=== PATIENT | female | born 1985 | race Caucasian/White ===

== ENCOUNTER 2016-05-08 09:56 | Inpatient (IN) | payer OTHER ==
[~2016-05-08 09:56] MED LIST: HYDROmorphONE/DILAUDID 1 MG/ML SYR IVP ONE
[2016-05-08] MEDS ORDERED: HYDROmorphONE/DILAUDID 1 MG/ML SYR ONE ×3 (10:06→13:18)
[2016-05-08] MEDS ORDERED: NS 1,000 ML IV ONE (10:27)
[2016-05-08] MEDS ORDERED: ONDANSETRON 4 MG/2 ML VIAL IVP ONE ×2 (10:27→13:21)
[2016-05-08] MEDS ORDERED: HYDROmorphONE/DILAUDID 1 MG/ML SYR IVP ONE (10:27)
[2016-05-08] MEDS ORDERED: FAMOTIDINE 20 MG/NACL 50 ML IV ONE (10:27)
--- NOTE | 2016-05-08 10:32 | EDPHY ---
H & P Time Seen by Provider: 05/08/16 10:04 HPI/ROS: HPI Abdominal pain. 30-year-old female by private vehicle with her friend. This patient reports relatively sudden onset mid abdominal pain starting at 8:30 a.m.. She describes this pain is very intense and crampy in nature. She reports that it spreads throughout her entire abdomen. She reports having a similar episode to this 1 month ago in [place]. She had an extensive workup at this time. She had an unremarkable CT scan of her abdomen and pelvis. This resolved pain spontaneously. She has been seen Dr. Cisneros of the [facility] since this episode. She has not had endoscopy yet. There is concern regarding her iron levels. No history of abdominal surgeries. Last bowel movement was this morning. This was described as soft normal. No bloody or melenic stool. She has had nausea but no vomiting. No urinary complaints. Last meal was yesterday evening. ROS: Constitutional: No fever, no chills. No weakness. Eyes: No discharge. No changes in vision. ENT: No sore throat. No nasal congestion or rhinorrhea. Respiratory: No cough. No shortness of breath. Cardiac: No chest pain, no palpitations. Gastrointestinal: As above. Genitourinary: No hematuria. No dysuria or increased frequency with urination. No vaginally bleeding or vegetable discharge. Musculoskeletal: No back pain. No neck pain. No myalgias or arthralgias. Skin: No rashes. Neurological: No headache. No focal weakness or altered sensation. Past medical history: As above. Social history: She is here with her friend. Physical Exam: General Appearance: Alert, she appears uncomfortable. This patient is responding to questions appropriately and in full sentences. This patient appears well-hydrated and well-nourished. Eyes: Pupils equal and round no pallor or injection. No lid edema, erythema or injection. Respiratory: There are no retractions, lungs are clear to auscultation with good air movement bilaterally. Cardiovascular: Regular rate and rhythm. No murmur. Gastrointestinal: Abdomen is soft with tenderness on palpation throughout, no masses, bowel sounds normal. No focal tenderness at McBurney's point. No Coles sign. Neurological: Motor sensory function is grossly intact. Cranial nerves are normal. Gait is normal. Skin: Warm and dry, no rashes. Musculoskeletal: Neck is supple and nontender. Extremities are symmetrical. All joints range without pain or impingement. Psychiatric: No agitation. No depression. Database: EKG: Imaging: CT scan of abdomen and pelvis with IV contrast: Significant for a small bowel obstruction in the upper mid pelvis, questionable internal hernia. Results were discussed with staff radiologist Dr. Ciro Mayer. Procedures: Emergency department course: IV placed. She was placed on a monitor. She was started on IV normal saline with 1 L to be given over the next hour. She was initially given 0.5 mg of IV hydromorphone, 20 mg of IV Pepcid and 4 mg of IV Zofran. IV hydromorphone will be repeated as needed for pain control. She will be sent for CT imaging of the abdomen and pelvis. She endorses this plan. 11:00 a.m., patient has required additional doses of IV hydromorphone for pain control. She has had 1.5 mg total. Waiting on creatinine if normal will give 30 mg IV Toradol. 11:20 a.m., 30 mg IV Toradol given. Patient going to CT imaging shortly. 12:00 p.m., patient re-evaluated. She is asking for more pain medication. She was given an additional 0.5 mg of IV hydromorphone. She is a [facility] patient. [facility] general surgeon has been paged. 12:10 p.m., spoke with general surgeon, Dr. Daniel Ortiz. Case discussed in detail with him. He will see this patient in the emergency department shortly. Initial plan is operative management shortly. Plan discussed with patient. All of her questions were answered. 1 PM, patient taking to OR under the care of Dr. Daniel Ortiz. Differential Diagnosis: The differential diagnosis on this patient includes but is not limited to bowel obstruction/volvulus, appendicitis, pancreatitis, cholecystitis, colitis, ileitis. This represents a partial list of diagnoses considered. These considerations are based on history, physical exam, past history, reassessment and diagnostic testing. Smoking Status: Never smoked Constitutional: Initial Vital Signs Temperature (C) 36.5 C 05/08/16 10:00 Heart Rate 54 L 05/08/16 10:00 Respiratory Rate 24 H 05/08/16 10:00 Blood Pressure 157/93 H 05/08/16 10:00 O2 Sat (%) 100 05/08/16 10:00 Allergies/Adverse Reactions: cefaclor [From [facility]] Allergy (Verified 05/08/16 10:00) Home Medications: Medication Instructions Recorded Norgestimate-Ethinyl Estradiol 1 each PO HS 05/08/16 [Trinessa Tablet] Medical Decision Making - Data Points Laboratory Results: Laboratory Results 05/08/16 10:45 05/08/16 10:45 Medications Given: Discontinued Medications Hydromorphone HCl (Dilaudid) 0.5 mg IVP EDNOW ONE Stop: 05/08/16 08:01 Last Admin: 05/08/16 10:12 Dose: 0.5 mg Hydromorphone HCl (Dilaudid) 1 mg IVP EDNOW ONE Stop: 05/08/16 08:01 Last Admin: 05/08/16 10:27 Dose: 1 mg Hydromorphone HCl (Dilaudid) 0.5 mg IVP EDNOW ONE Stop: 05/08/16 10:28 Last Admin: 05/08/16 12:14 Dose: 0.5 mg Hydromorphone HCl (Dilaudid) 1 mg IVP EDNOW ONE Stop: 05/08/16 08:01 Last Admin: 05/08/16 13:27 Dose: 1 mg Sodium Chloride (Ns) 1,000 mls @ 0 mls/hr IV ONCE ONE PRN Reason: Wide Open Stop: 05/08/16 10:28 Last Admin: 05/08/16 10:27 Dose: 1,000 mls Famotidine/Sodium Chloride (Pepcid 20 Mg (Premix)) 50 mls @ 200 mls/hr IV EDNOW ONE Stop: 05/08/16 10:41 Last Admin: 05/08/16 10:45 Dose: 50 mls Ertapenem 1 gm/ Sodium (Chloride) 100 mls @ 200 mls/hr IV DAILY JARRETT PRN Reason: Protocol Stop: 06/08/16 17:29 Last Admin: 05/09/16 17:30 Dose: 100 mls Ketorolac Tromethamine (Toradol) 30 mg IVP EDNOW ONE Stop: 05/08/16 11:11 Last Admin: 05/08/16 11:44 Dose: 30 mg Ondansetron HCl (Zofran) 4 mg IVP EDNOW ONE Stop: 05/08/16 10:28 Last Admin: 05/08/16 12:14 Dose: 4 mg Ondansetron HCl (Zofran) 4 mg IVP EDNOW ONE Stop: 05/08/16 13:22 Last Admin: 05/08/16 13:27 Dose: 4 mg Ondansetron HCl (Zofran Odt) 4 mg PO Q6 PRN PRN Reason: Nausea/Vomiting, Use 1st Stop: 11/06/16 17:06 Last Admin: 05/10/16 17:29 Dose: 4 mg Oxycodone/Acetaminophen (Percocet 5/325) 1 - 2 tab PO Q6 PRN PRN Reason: Pain, Severe Able to Take PO Stop: 05/19/16 08:49 Last Admin: 05/09/16 13:03 Dose: 2 tab Departure - Departure Disposition: To OP Cath/Surgery Clinical Impression: Abdominal pain, Small bowel obstruction Condition: Good
[2016-05-08 10:55] LABS: % IMMATURE GRANULYOCYTES 0.4 % (0.0-1.1); ABSOLUTE IMMATURE GRANULOCYTES 0.04 10^3/uL (0.00-0.10); ADD DIFF? NO; ADD MORPH? NO; ADD SCAN? NO; ATYPICAL LYMPHOCYTE FLAG 10 (0-99); FRAGMENT RBC FLAG 20 (0-99); HEMATOCRIT 41.6 % (38.0-47.0); HEMOGLOBIN 13.4 g/dL (12.6-16.3); LEFT SHIFT FLG 0 (0-99); LIPEMIA HEMOLYSIS FLAG 80 (0-99); MEAN CELL HEMOGLOBIN 26.4 pg (27.9-34.1); MEAN CELL HEMOGLOBIN CONCENTR. 32.2 g/dL (32.4-36.7); MEAN CELL VOLUME 81.9 fL (81.5-99.8); MEAN PLATELET VOLUME 10.8 fL (8.7-11.7); PLATELET CLUMPS FLAG 0 (0-99); PLATELET COUNT 260 10^3/uL (150-400); RED BLOOD CELL COUNT 5.08 10^6/uL (4.18-5.33); RED CELL DISTRIBUTION WIDTH 16.8 % (11.5-15.2)
[2016-05-08 11:07] LABS: ALANINE AMINOTRANSFERASE 15 IU/L (9-52); ALBUMIN 4.3 g/dL (3.5-5.0); ALKALINE PHOSPHATASE 73 IU/L (38-126); ANION GAP 14 mEq/L (8-16); ASPARTATE AMINOTRANSFERASE 37 IU/L (14-46); BILIRUBIN,TOTAL 0.9 mg/dL (0.1-1.4); BILIRUBIN-CONJUGATED 0.6 mg/dL (0.0-0.5); BILIRUBIN-UNCONJUGATED 0.3 mg/dL (0.0-1.1); CARBON DIOXIDE 21 mEq/l (22-31); CHLORIDE 105 mEq/L (97-110); CREATININE 0.7 mg/dL (0.6-1.0); GLOMERULAR FILTRATION RATE > 60; GLUCOSE 170 mg/dL (70-100); SODIUM 140 mEq/L (134-144); SPECIMEN HEMOLYSIS 135; TOTAL PROTEIN 7.5 g/dL (6.3-8.2)
[2016-05-08] MEDS ORDERED: KETOROLAC 30 MG/1 ML SDV IVP ONE (11:10)
[2016-05-08] MEDS ORDERED: IOPAMIDOL (ISOVUE-300) 50 ML VIAL IV ONE (11:11)
--- NOTE | 2016-05-08 12:10 | CT ---
CT Scan of the Abdomen and Pelvis (With Contrast) 1125 hours History: Abdominal pain. Bloating. Nausea and vomiting. Technique: Axial computed tomographic images of the abdomen and pelvis were obtained with the unevent ful intravenous administration of 90 mL Isovue-300 contrast. No oral or rectal contrast which limits the study. Dose reduction techniques were utilized. CT Abdomen Findings: Lung bases: Normal. Liver: Normal. Biliary system: No obstruction. Spleen: Normal. Pancreas: Normal. Adrenals: Normal. Kidneys: No obstruction or solid masses. Abdominal Aorta: No aneurysm. Multiple dilated loops of small bowel with air-fluid levels, wall edema, and mesenteric edema which o n the coronal images is swirling to a central point located just upper midpelvis posteriorly, consist ent with a closed loop small bowel obstruction with possible internal hernia extending into the upper right mid pelvis on image [address] Pelvis Findings: Small amount of free fluid in the pelvis. No adnexal masses. Impression: 1. High-grade closed-loop small bowel obstruction in the midpelvis with small bowel air-fluid levels, edema, free fluid, and a possible internal hernia. 2. No colonic obstruction or volvulus. Findings and recommendations discussed with Emergency Department physician, Dr. Mora at 1145 h ours today. Final report concurs with initial preliminary interpretation.
[2016-05-08 13:14] LABS: FERRITIN - BCH 19.1 ng/mL (6.2-264.0)
[2016-05-08] MEDS ORDERED: ONDANSETRON 4 MG/2 ML VIAL ONE ×2 (13:21→14:41)
[2016-05-08] MEDS ORDERED: BUPIVACAINE 0.5% 30 ML SDV ONE (14:00)
[2016-05-08] MEDS ORDERED: PROPOFOL 200 MG/20 ML VIAL ONE ×2 (14:00)
[2016-05-08] MEDS ORDERED: fentaNYL 100 MCG/2 ML INJ ONE ×2 (14:00→14:36)
[2016-05-08] MEDS ORDERED: ROCURONIUM 50 MG/5 ML VIAL ONE (14:04)
[2016-05-08] MEDS ORDERED: LIDOCAINE 2% 100 MG/5 ML SYR IVP ONE ×2 (14:04→14:05)
[2016-05-08] MEDS ORDERED: SUCCINYLCHOLINE CHLORIDE*ANESTHESIA ONLY*200 MG/10 ML SYR IVP ONE (14:05)
[2016-05-08] MEDS ORDERED: MIDAZOLAM 2 MG/2 ML VIAL ONE (14:10)
[2016-05-08] MEDS ORDERED: DEXAMETHASONE 4 MG/ML VIAL ONE ×2 (14:40→14:41)
[2016-05-08] MEDS ORDERED: HYDROmorphONE/DILAUDID 2 MG/ML SYR ONE (14:40)
[2016-05-08] MEDS ORDERED: KETOROLAC 30 MG/1 ML SDV ONE (15:11)
[2016-05-08] MEDS ORDERED: SUGAMMADEX SODIUM 200 MG/2 ML VIAL IVP ONE (15:21)
--- NOTE | 2016-05-08 15:43 | POSTOPPROG ---
Post Op Note Date of Operation: 05/08/16 Surgeon: Arian Ortiz Anesthesiologist: Edwige Anesthesia: GET(General Endotracheal) Pre-op Diagnosis: PSBO Post-op Diagnosis: internal hernia Procedure: Diagnostic laparoscopy, Ophelia, repair internal hernia Inf/Abcess present in the surg proc area at time of surgery?: No EBL: 50-100
[2016-05-08] MEDS: LR 1,000 ML IV SCH (17:29)
--- NOTE | 2016-05-08 19:45 | GOP ---
[f rep st] OPERATIVE REPORT DATE OF OPERATION: 05/08/2016 SURGEON: Venkatesh Ortiz MD ANESTHESIA: General endotracheal. ANESTHESIOLOGIST: Dr. iGbbons PREOPERATIVE DIAGNOSIS: Partial small-bowel obstruction. POSTOPERATIVE DIAGNOSIS: 1. Closed loop bowel obstruction. 2. Internal hernia. PROCEDURE PERFORMED: 1. Diagnostic laparoscopy. 2. Lysis of adhesions. 3. Repair of internal hernia. FINDINGS: Patient had a defect in the transverse colonic mesentery allowing small intestine to herni ate and cause a closed loop obstruction. Bowel was viable. No other lesions were noted. ESTIMATED BLOOD LOSS: 20 cc. INDICATIONS: A 30-year-old female with a history of abdominal pain. CT scan demonstrated possible o bstruction. Risks and benefits of the procedure were discussed the patient, all questions were answe red, and she wished to proceed. DESCRIPTION OF PROCEDURE: Patient was placed in the supine position. After the induction of adequat e general endotracheal anesthesia, the patient was prepped and draped in the standard surgical fashio n. 0.5% Marcaine was injected throughout the infraumbilical area and a 5 mm incision was made. The abdo nitesh wall was elevated and a Veress needle was inserted. After noting proper pressures, the abdomen was insufflated with carbon dioxide. A 5 mm trocar was passed and the camera followed. There was n o apparent damage from trocar placement. Upon entry with the camera, there was a significant small bowel anterior to the transverse colon mese ntery. Two more ports were placed, both 5 mm ports, placed in the lower abdomen. This was done afte r injecting 0.5% Marcaine for local anesthesia. The omentum and transverse colon were elevated. This exposed the defect in the transverse mesentery. A significant portion of mid small bowel was herniated through this. This was gently retracted in a fyfd-bwak-kepu fashion using atraumatic graspers. A segment of approximately 20 cm was mildly hemo rrhagic, but otherwise unharmed. There was a band adhesion pinning the intestine in this configurati on. This was lysed using sharp dissection. The bowel was returned to its standard anatomical positi on. The blood flow improved nicely. The defect was then evaluated and was approximately 2.5. This was closed with a 5 mm clip nursing care attendant. Once adequate closure was obtained, the area was thoroughly inspected. No other lesions were identif ied. No significant hernias or masses were noted. The bowel was continuing to improve in its color and was all peristalsing without difficulty. The area was then thoroughly aspirated and no evidence of perforation seen. Therefore, the pneumoper itoneum was allowed to escape and the ports were withdrawn under direct vision. The wounds were thor oughly irrigated and the skin at all sites was closed with 4-0 Monocryl in a subcuticular stitch. Wo unds were sterilely dressed, and the patient was extubated and taken to the PACU in stable condition. COMPLICATIONS: None. DRAINS: None. /[id number]/MODL
[2016-05-08] MEDS: KETOROLAC 15 MG/1 ML SDV IVP SCH (21:58)
[2016-05-08 23:20] LABS: COLOR YELLOW; LEUKOCYTE ESTERASE,URINE NEGATIVE (NEGATIVE); NITRITE,URINE NEGATIVE (NEGATIVE)
[2016-05-08 23:24] LABS: MUCUS TRACE /lpf (NONE-1+); RBC,URINE 50-182 /hpf (0-3)
[2016-05-09] MEDS: ONDANSETRON 4 MG/2 ML VIAL IVP PRN ×4 (01:07→20:38)
[2016-05-09] MEDS: HYDROmorphONE/DILAUDID 1 MG/ML SYR IVP PRN ×5 (01:08→20:50)
[2016-05-09] MEDS: LR 1,000 ML IV SCH ×2 (02:45→15:46)
[2016-05-09] MEDS: KETOROLAC 15 MG/1 ML SDV IVP SCH ×3 (05:56→22:05)
[2016-05-09] MEDS: OXYCODONE/APAP 5/325 TAB PO PRN ×3 (08:56→21:02)
--- NOTE | 2016-05-09 17:14 | SOAPPROG ---
SOAP Progress Note Assessment/Plan: Assessment: Appeared improved on exam this AM; now with low-grade temp and tachycardia. Options d/w patient and family including abx, imaging, repeat laparoscopy. Risks/benefits of each explained along with signs and symptoms of concern. Questions answered. Will start abx for potential translocation, but if no improvement plan further intervention. Plan: 05/09/16 17:11 Subjective: Patient felt better this AM, still with upper abd and right shoulder pain. Worse now but not similar to presenting pain. No N/V. Urinating without difficulty. No BM. Objective: Vital Signs Temp Pulse Resp BP Pulse Ox 38.0 C 125 H 16 118/65 93 05/09/16 15:44 05/09/16 15:44 05/09/16 15:30 05/09/16 15:30 05/09/16 15:30 05/08/16 05/09/16 05/10/16 05:59 05:59 05:59 Intake Total 3307 Output Total 655 Balance 2652 Alert, NAD Tach but reg to 110. Abd slightly distended, some inc TTP but no rebound/guarding Inc C/D/I ICD10 Worksheet Patient Problems: Problems Problem Status Diagnosed Abdominal pain Acute Small bowel obstruction Acute
[2016-05-09] MEDS ORDERED: ERTAPENEM 1 GM in NS 100 ML IV SCH (17:30)
[2016-05-09 17:31] LABS: ADD MORPH? NO; ADD SCAN? YES; ATYPICAL LYMPHOCYTE FLAG 30 (0-99); FRAGMENT RBC FLAG 0 (0-99); HEMATOCRIT 36.3 % (38.0-47.0); HEMOGLOBIN 11.6 g/dL (12.6-16.3); LIPEMIA HEMOLYSIS FLAG 80 (0-99); MEAN CELL HEMOGLOBIN 26.4 pg (27.9-34.1); MEAN CELL VOLUME 82.7 fL (81.5-99.8); MEAN PLATELET VOLUME 10.4 fL (8.7-11.7); PLATELET CLUMPS FLAG 0 (0-99); PLATELET COUNT 162 10^3/uL (150-400); RED BLOOD CELL COUNT 4.39 10^6/uL (4.18-5.33); RED CELL DISTRIBUTION WIDTH 17.1 % (11.5-15.2)
[2016-05-09 17:34] LABS: LEFT SHIFT FLG 300 (0-99)
[2016-05-09 17:55] LABS: ALANINE AMINOTRANSFERASE 27 IU/L (9-52); ALBUMIN 2.8 g/dL (3.5-5.0); ALKALINE PHOSPHATASE 49 IU/L (38-126); ANION GAP 10 mEq/L (8-16); ASPARTATE AMINOTRANSFERASE 21 IU/L (14-46); BILIRUBIN,TOTAL 0.9 mg/dL (0.1-1.4); CALCIUM 7.9 mg/dL (8.5-10.4); CARBON DIOXIDE 26 mEq/l (22-31); CHLORIDE 101 mEq/L (97-110); CREATININE 0.8 mg/dL (0.6-1.0); GLOMERULAR FILTRATION RATE > 60; GLUCOSE 101 mg/dL (70-100); POTASSIUM 3.8 mEq/L (3.5-5.2); SODIUM 137 mEq/L (134-144); TOTAL PROTEIN 5.8 g/dL (6.3-8.2)
[2016-05-09 18:17] LABS: ADD DIFF? YES; SCAN POSITIVE
[2016-05-09 18:33] LABS: GIANT PLATELETS PRESENT
[2016-05-09 18:34] LABS: HYPOCHROMIA 1+; MICROCYTES 1+; PLATELET ESTIMATE ADEQUATE (ADEQ)
[2016-05-10] MEDS: OXYCODONE/APAP 5/325 TAB PO PRN ×6 (01:44→22:52)
[2016-05-10] MEDS: LR 1,000 ML IV SCH ×3 (01:59→23:52)
[2016-05-10] MEDS: KETOROLAC 15 MG/1 ML SDV IVP SCH ×3 (05:30→21:59)
--- NOTE | 2016-05-10 08:55 | SOAPPROG ---
SOAP Progress Note Assessment/Plan: Assessment: Improving. Cont slow advancement of diet, ambulate, IS. Reviewed signs/ symptoms of concern, questions answered. Plan: 05/09/16 17:11 05/10/16 08:54 Subjective: Patient feels better, pain improved, no temps overnight. No flatus/BM Objective: Vital Signs Temp Pulse Resp BP Pulse Ox 36.8 C 94 18 92/61 L 95 05/10/16 08:00 05/10/16 08:00 05/10/16 08:00 05/10/16 08:00 05/10/16 08:00 Laboratory Results 05/09/16 17:26 05/09/16 17:26 05/09/16 05/10/16 05/11/16 05:59 05:59 05:59 Intake Total 3307 2418 400 Output Total 655 2130 Balance 2652 288 400 Alert, NAD RRR Abd soft, inc TTP Inc C/D/I ICD10 Worksheet Patient Problems: Problems Problem Status Diagnosed Abdominal pain Acute Small bowel obstruction Acute
[2016-05-10] MEDS: ONDANSETRON 4 MG/2 ML VIAL IVP PRN ×2 (09:39→13:27)
[2016-05-10] MEDS ORDERED: ONDANSETRON DISINTEGRATING 4 MG TAB PO PRN (17:07)
[2016-05-10] MEDS: ONDANSETRON DISINTEGRATING 4 MG TAB PO PRN (22:26)
[2016-05-11] MEDS: ONDANSETRON DISINTEGRATING 4 MG TAB PO PRN ×4 (03:48→16:38)
[2016-05-11] MEDS: OXYCODONE/APAP 5/325 TAB PO PRN ×4 (04:01→17:02)
[2016-05-11] MEDS: KETOROLAC 15 MG/1 ML SDV IVP SCH ×2 (06:07→15:05)
--- NOTE | 2016-05-11 08:43 | SOAPPROG ---
SOAP Progress Note Assessment/Plan: Assessment: Stable to improving ileus. Cont slow po, ambulate, pain control, IS. D/w patient and family, questions answered. Plan: 05/09/16 17:11 05/10/16 08:54 05/11/16 08:41 Subjective: Patient overall feels better, new discomfort LLQ. [place] po, no N/V. No BM. Objective: Vital Signs Temp Pulse Resp BP Pulse Ox 36.4 C 107 H 12 109/74 97 05/11/16 08:00 05/11/16 08:00 05/11/16 08:00 05/11/16 08:00 05/11/16 08:00 Laboratory Results 05/09/16 17:26 05/09/16 17:26 05/10/16 05/11/16 05/12/16 05:59 05:59 05:59 Intake Total 2418 2250 Output Total 2130 1245 Balance 288 1005 Alert, NAD RRR Abd distended, inc TTP. No rebound/guarding Inc C/D/I ICD10 Worksheet Patient Problems: Problems Problem Status Diagnosed Abdominal pain Acute Small bowel obstruction Acute
[2016-05-11] MEDS ORDERED: K PHOS 10 MMOL in D5W 250 ML IV ONE (12:00)
--- NOTE | 2016-05-11 15:52 | CPEKG ---
Heart Rate: 140 RR Interval: 429 P-R Interval: 128 QRSD Interval: 74 QT Interval: 264 QTC Interval: 403 P Corinth: 51 QRS Corinth: 31 T Wave Corinth: -55 EKG Severity - BORDERLINE ECG - EKG Impression: SINUS TACHYCARDIA EKG Impression: BORDERLINE T ABNORMALITIES, DIFFUSE LEADS Electronically Signed By: Pedro Harrison 11-May-2016 17:05:56
[2016-05-11 16:23] LABS: HEMATOCRIT 37.6 % (38.0-47.0); MEAN CELL HEMOGLOBIN 26.5 pg (27.9-34.1); MEAN CELL HEMOGLOBIN CONCENTR. 31.9 g/dL (32.4-36.7); RED BLOOD CELL COUNT 4.53 10^6/uL (4.18-5.33); RED CELL DISTRIBUTION WIDTH 17.3 % (11.5-15.2)
[2016-05-11 16:36] LABS: ANION GAP 11 mEq/L (8-16); CALCIUM 8.3 mg/dL (8.5-10.4); CARBON DIOXIDE 26 mEq/l (22-31); CHLORIDE 95 mEq/L (97-110); CREATININE 0.7 mg/dL (0.6-1.0); GLOMERULAR FILTRATION RATE > 60; GLUCOSE 111 mg/dL (70-100); MAGNESIUM 1.7 mg/dL (1.6-2.3); POTASSIUM 3.7 mEq/L (3.5-5.2); SODIUM 132 mEq/L (134-144)
[2016-05-11] MEDS ORDERED: PROTOCOL MAGNESIUM 1 DOSE IV PRN (16:40)
[2016-05-11] MEDS ORDERED: PROTOCOL K PHOSPHATE 1 DOSE IV PRN (16:40)
[2016-05-11] MEDS ORDERED: MAGNESIUM SULF 1 GM/DEXTROSE 100 ML IV ONE (17:36)
[2016-05-11] MEDS: HYDROmorphONE/DILAUDID 1 MG/ML SYR IVP PRN (18:25)
[2016-05-11] MEDS ORDERED: IOPAMIDOL (ISOVUE-300) 50 ML VIAL IV ONE (18:42)
--- NOTE | 2016-05-11 19:31 | CT ---
CT Scan of the Abdomen and Pelvis (With Contrast) 1908 hours History: Abdominal pain and distention status post internal hernia and small bowel obstruction surge ry. Comparison: CT May 08, 2016. Technique: Axial computed tomographic images of the abdomen and pelvis were obtained with the uneven tful intravenous administration of 85 mL Isovue-300 contrast. No oral or rectal contrast which limits the study. Dose reduction techniques were utilized. CT Abdomen Findings: Lung bases: Minimal bilateral pleural effusions. Liver: Normal. Biliary system: No obstruction. Spleen: Normal. Pancreas: Normal. Adrenals: Normal. Kidneys: No obstruction or solid masses. Abdominal Aorta: No aneurysm. Moderate pneumoperitoneum in the abdomen especially epigastric and right upper quadrant. Moderate asc ites throughout the abdomen with diffuse edema. Multiple dilated loops of small bowel with air-fluid levels, but no definite transition point. Colon appears decompressed. Sutures in the right upper quad rant of the abdomen. CT Pelvic Findings: Complex fluid collections anterior and posterior to the uterus. The posterior fl uid collection appears complex with gas bubbles and mixed density measuring 11.4 x 7 x 7 cm. The ante rior fluid collection anterior to the uterus and superior to the bladder also appears complex with ai r-fluid level measuring 11.4 x 4.8 x 9.2 cm. Diffuse fluid also noted in the mid mesentery. Impression: 1. Complex fluid and pneumoperitoneum with 2 more focal larger fluid collections posterior cul-de-sac measuring 11.4 x 7 x 7 cm and anterior upper pelvis measuring 11.4 x 4.8 x 9.2 cm suggesting possibl e bowel perforation and early abscess. 2. Additional fluid throughout the upper abdomen with extensive pneumoperitoneum. 3. Minimal bilateral pleural effusions. 4. Multiple dilated loops of small bowel without definite transition point. Bowel perforation cannot be excluded. Findings and recommendations discussed with Dr. Ortiz at 1915 hours, May 11, 2016.
[2016-05-11] MEDS ORDERED: BUPIVACAINE 0.5% 30 ML SDV ONE (19:53)
[2016-05-11] MEDS ORDERED: fentaNYL 250 MCG/5 ML INJ ONE (20:09)
[2016-05-11] MEDS ORDERED: ROCURONIUM 50 MG/5 ML VIAL ONE (20:09)
[2016-05-11] MEDS ORDERED: LIDOCAINE 2% 5 ML SDV ONE (20:10)
[2016-05-11] MEDS ORDERED: PROPOFOL 200 MG/20 ML VIAL ONE (20:10)
[2016-05-11] MEDS ORDERED: DEXAMETHASONE 4 MG/ML VIAL ONE (20:11)
[2016-05-11] MEDS ORDERED: SUCCINYLCHOLINE CHLORIDE*ANESTHESIA ONLY*200 MG/10 ML SYR IVP ONE (20:12)
[2016-05-11] MEDS ORDERED: BUPIVACAINE 0.25% 30 ML SDV ONE ×2 (20:27→22:03)
[2016-05-11] MEDS ORDERED: MIDAZOLAM 2 MG/2 ML VIAL ONE (20:43)
[2016-05-11] MEDS ORDERED: ONDANSETRON 4 MG/2 ML VIAL ONE ×3 (21:46→22:52)
[2016-05-11] MEDS ORDERED: NEOSTIGMINE METHYLSULFATE 5 MG/5 ML SYR ONE (22:03)
[2016-05-11] MEDS ORDERED: GLYCOPYRROLATE 0.2 MG/1 ML VIAL ONE (22:04)
[2016-05-11] MEDS ORDERED: NALOXONE HCL 0.4 MG/ML INJ IVP PRN (22:33)
[2016-05-11] MEDS ORDERED: D10W 1,000 ML IV PRN (22:34)
--- NOTE | 2016-05-11 22:44 | POSTOPPROG ---
Post Op Note Date of Operation: 05/11/16 Surgeon: Arian Ortiz Anesthesiologist: Jaswant Anesthesia: GET(General Endotracheal) Pre-op Diagnosis: Bowel perforation Post-op Diagnosis: same Procedure: Exploratory laparotomy, small bowel resection Inf/Abcess present in the surg proc area at time of surgery?: Yes Depth: Organ Space EBL: 50-100 Drains: Chance Vallecillo ([id number])
[2016-05-11] MEDS ORDERED: fentaNYL 100 MCG/2 ML INJ ONE (22:47)
[2016-05-11] MEDS ORDERED: HYDROmorphONE/DILAUDID 1 MG/ML SYR ONE (23:31)
[2016-05-12] MEDS: HYDROmorphONE/DILAUDID 6 MG/30 ML PCA IV PRN (00:26)
[2016-05-12] MEDS: NS 1,000 ML IV SCH ×3 (01:17→20:33)
[2016-05-12] MEDS: ERTAPENEM 1 GM in NS 100 ML IV SCH ×2 (01:44→20:33)
--- NOTE | 2016-05-12 02:27 | GOP ---
[f rep st] OPERATIVE REPORT DATE OF OPERATION: 05/11/2016 SURGEON: Venkatesh Ortiz MD ANESTHESIA: General endotracheal anesthesia PREOPERATIVE DIAGNOSIS: Bowel perforation. POSTOPERATIVE DIAGNOSIS: Bowel perforation. PROCEDURE PERFORMED: 1. Exploratory laparotomy. 2. Small bowel resection. FINDINGS: The patient had multiple perforations along the section of small bowel that had been reduced from the prior surgery. No other lesions were identified. ESTIMATED BLOOD LOSS: 50 cc. INDICATIONS: A 30-year-old female, who is status post laparoscopic reduction of an internal hernia. The patient developed tachycardia and abdominal pain postoperatively. CT scan demonstrated a large amount of fluid and free air consistent with perforation. Risks and benefits of the procedure were discussed with the patient and her family, their questions were answered. They wished to proceed. DESCRIPTION OF PROCEDURE: Patient was in the supine position. After the induction of adequate general endotracheal anesthesia, the patient was prepped and draped in standard surgical fashion. 0.25% Marcaine was injected throughout the infraumbilical area for local anesthesia. A lower midline incision was made with a #10 blade and carried down into subcutaneous tissue. Bovie cautery and blunt dissection. The fascia was divided in the midline. The peritoneum was elevated. The abdomen was then entered bluntly, and the abdomen was inspected. There was a significant amount of succus in the pelvis. This was thoroughly suctioned with a pool sucker. Next, the abdomen was thoroughly irrigated and aspirated until the effluent returned clear. At this point, the intestine was assessed. There was an approximately 20 cm section of small bowel that appeared to be hemorrhagic. There were 3-5 small punctate perforations near the mesenteric border in different areas along this length. There was some thrombosis noted in the mesentery adjacent to this bowel. The remainder of the small bowel was run and no other lesions were identified. Decision was made to resect this section. Windows were opened in the mesentery using blunt dissection. The JONATHAN stapler with blue load was passed across each section and fired. The mesentery was then dissected with the Harmonic scalpel. The area was inspected and good hemostasis was noted. The bowel was then approximated using 3-0 Vicryl in an interrupted fashion. This potential anastomosis was set in the abdomen and the remainder of the abdomen was thoroughly irrigated and aspirated with warm saline. Once the effluent returned clear, the site of the anastomosis was reinspected. It appeared to have good blood supply, with no evidence of hemorrhagic areas of a thrombosis. Therefore, enterotomies were made with Bovie cautery. JONATHAN stapler with blue load was passed across this area and fired. The staple lines were inspected. Good hemostasis was noted. The mucosa was pink. The remaining defect was closed with 3-0 Vicryl in a running fashion. This was then oversewn with 3-0 Vicryl Lemberts. The area was again inspected and no tension or twisting was noted. The mesenteric defect was closed with 3-0 Vicryl in a running fashion. The remainder of the abdomen was inspected. No other lesions were noted. Due to the contamination, a RODRIGO drain was left through a separate stab incision. This was a 19 round RODRIGO placed deep in the pelvis. It was secured with a 3-0 nylon suture. The abdomen was again irrigated. No remaining contamination was identified. The anastomosis was again inspected and found to be intact with a good blood supply. The omentum was then draped over the area. The fascia was closed with 0 PDS in running fashion. This was reinforced with 2-0 Vicryl internal retention sutures. The skin was thoroughly irrigated and due to the contamination, the skin was closed with aury. Wound was sterilely dressed. The patient then had a Arvizu catheter placed. Patient was then extubated and taken to PACU in stable condition. DRAINS: Include Chance-Vallecillo in the pelvis. /[id number]/MODL MTDD
[2016-05-12 05:53] LABS: % IMMATURE GRANULYOCYTES 0.7 % (0.0-1.1); ABSOLUTE IMMATURE GRANULOCYTES 0.05 10^3/uL (0.00-0.10); ADD DIFF? NO; ADD MORPH? NO; ADD SCAN? YES; ATYPICAL LYMPHOCYTE FLAG 0 (0-99); FRAGMENT RBC FLAG 0 (0-99); HEMATOCRIT 33.2 % (38.0-47.0); HEMOGLOBIN 10.5 g/dL (12.6-16.3); LIPEMIA HEMOLYSIS FLAG 80 (0-99); MEAN CELL HEMOGLOBIN 26.6 pg (27.9-34.1); MEAN CELL HEMOGLOBIN CONCENTR. 31.6 g/dL (32.4-36.7); MEAN CELL VOLUME 84.1 fL (81.5-99.8); MEAN PLATELET VOLUME 10.2 fL (8.7-11.7); PLATELET CLUMPS FLAG 0 (0-99); PLATELET COUNT 272 10^3/uL (150-400); RED BLOOD CELL COUNT 3.95 10^6/uL (4.18-5.33); RED CELL DISTRIBUTION WIDTH 17.6 % (11.5-15.2)
[2016-05-12 06:01] LABS: ALANINE AMINOTRANSFERASE 29 IU/L (9-52); ALBUMIN 1.8 g/dL (3.5-5.0); ALKALINE PHOSPHATASE 58 IU/L (38-126); ANION GAP 6 mEq/L (8-16); ASPARTATE AMINOTRANSFERASE 22 IU/L (14-46); BILIRUBIN,TOTAL 0.7 mg/dL (0.1-1.4); CALCIUM 7.2 mg/dL (8.5-10.4); CARBON DIOXIDE 31 mEq/l (22-31); CHLORIDE 97 mEq/L (97-110); CREATININE 0.7 mg/dL (0.6-1.0); GLOMERULAR FILTRATION RATE > 60; GLUCOSE 118 mg/dL (70-100); MAGNESIUM 1.9 mg/dL (1.6-2.3); POTASSIUM 4.5 mEq/L (3.5-5.2); SODIUM 134 mEq/L (134-144); TOTAL PROTEIN 4.2 g/dL (6.3-8.2)
[2016-05-12 06:08] LABS: LEFT SHIFT FLG 300 (0-99)
[2016-05-12 07:31] LABS: SCAN POSITIVE
[2016-05-12 07:52] LABS: PLATELET ESTIMATE ADEQUATE (ADEQ)
--- NOTE | 2016-05-12 08:41 | SOAPPROG ---
SOAP Progress Note Assessment/Plan: Assessment: s/p ex lap/SB resection, doing well post-op. Ambulate, IS. Plan d/c cath when ambulatory. D/w patient and family, questions answered. Plan: 05/09/16 17:11 05/10/16 08:54 05/11/16 08:41 05/12/16 08:40 Subjective: Patient feels better, decreased pain, no N/V. Objective: Vital Signs Temp Pulse Resp BP Pulse Ox 36.9 C 100 12 105/73 97 05/12/16 05:11 05/12/16 05:11 05/12/16 05:11 05/12/16 05:11 05/12/16 05:11 Microbiology 05/11/16 21:13 Gram Stain - Final Abdomen - Tissue 05/11/16 20:59 Gram Stain - Final Abdomen - Eswab Laboratory Results 05/12/16 04:35 05/12/16 04:35 05/11/16 05/12/16 05/13/16 05:59 05:59 05:59 Intake Total 2250 2674 Output Total 1245 1835 Balance 1005 839 Alert, NAD RRR Abd sl distended, inc TTP Drsg C/D/I RODRIGO serosang ICD10 Worksheet Patient Problems: Problems Problem Status Diagnosed Abdominal pain Acute Small bowel obstruction Acute
--- NOTE | 2016-05-12 16:04 | DX ---
PICC Clinical Indication: Access for TPN. Procedures Performed: 1. Ultrasound-guided puncture of the right basilic vein. 2. Microwire was passed under ultrasound guidance and serially exchanged for the peel-away. 3. Measuring wire was used to estimate the length of the PICC, and it was trimmed at the 38 cm jorge. 4. The PICC was advanced to the SVC/right atrial junction over the measuring wire. The measuring wire and dilator were removed. 5. A stat chest x-ray was ordered to document positioning. EBL: Less than 10 mL. Specimens: None. Fluoroscopy Time: 0.1 minutes. 0.9 mGy. Operative Report: After obtaining informed consent and performing a formal timeout, the right arm was prepped and draped. 1% lidocaine local field block was achieved. The basilic vein was punctured unde r direct ultrasound visualization after deeming the vessel patent. Microwire was passed under ultraso und guidance and serially exchanged for the peel-away dilator. The patient was measured to estimate t he length of the PICC. The PICC was trimmed at 38 cm. The PICC was advanced over the measuring wire to the SVC/right atrial junction. The measuring wire and peel-away were removed. The PICC was secured and dressed with sterile gauze dressing. A stat chest x-ray was ordered to document positioning. Informed consent: Obtained from the patient. Risks and benefits were discussed. Crosscutting Measure: Patient's current list of medications including all known prescriptions, over- the-counters, herbals, and vitamin/mineral/dietary supplements are reviewed. Medications' name, dosa ge, frequency, and route of administration are confirmed. Prophylactic Antibiotic: Cefazolin was not ordered and administered for antimicrobial prophylaxis be cause it was not medically necessary. VTE Prophylaxis: There is not an order for VTE prophylaxis to be given within 24 hours of the proced ure end time. VTE prophylaxis was not given because it was not medically necessary. Technique: Patient was placed in supine position. A "timeout" procedure was performed to identify t he correct patient and the correct procedure. 1% Xylocaine was used for local anesthetic. All eleme nts of maximal sterile barrier technique including cap, mask, sterile gown, sterile gloves, large kady rile sheet, hand hygiene, and 2% chlorhexidine for cutaneous antisepsis, followed. Ultrasound evaluation of potential access site was performed. After successfully identifying a patent vessel, ultrasound guidance was used to puncture the vein. A permanent recording was created for the patient's record. When ultrasound is used, sterile gel and probe covers are used. Plan: Double-lumen PICC ready for use.
[2016-05-12] MEDS: TPN W/ FAMOTIDINE 1 EA BAG IV SCH (22:34)
[2016-05-13] MEDS: ONDANSETRON 4 MG/2 ML VIAL IVP PRN (00:14)
[2016-05-13 04:33] LABS: ALANINE AMINOTRANSFERASE 32 IU/L (9-52); ALBUMIN 1.7 g/dL (3.5-5.0); ALKALINE PHOSPHATASE 60 IU/L (38-126); ANION GAP 6 mEq/L (8-16); ASPARTATE AMINOTRANSFERASE 32 IU/L (14-46); BILIRUBIN,TOTAL 0.4 mg/dL (0.1-1.4); CALCIUM 6.8 mg/dL (8.5-10.4); CARBON DIOXIDE 31 mEq/l (22-31); CHLORIDE 99 mEq/L (97-110); CREATININE 0.6 mg/dL (0.6-1.0); GLOMERULAR FILTRATION RATE > 60; GLUCOSE 120 mg/dL (70-100); POTASSIUM 3.3 mEq/L (3.5-5.2); SODIUM 136 mEq/L (134-144)
[2016-05-13 04:39] LABS: ABSOLUTE IMMATURE GRANULOCYTES 0.27 10^3/uL (0.00-0.10); ABSOLUTE NRBC COUNT 0.02 10^3/uL (0-0.01); ADD DIFF? NO; ADD MORPH? NO; ADD SCAN? YES; ATYPICAL LYMPHOCYTE FLAG 70 (0-99); FRAGMENT RBC FLAG 20 (0-99); HEMATOCRIT 26.1 % (38.0-47.0); HEMOGLOBIN 8.3 g/dL (12.6-16.3); LIPEMIA HEMOLYSIS FLAG 80 (0-99); MEAN CELL HEMOGLOBIN 26.2 pg (27.9-34.1); MEAN CELL HEMOGLOBIN CONCENTR. 31.8 g/dL (32.4-36.7); MEAN CELL VOLUME 82.3 fL (81.5-99.8); MEAN PLATELET VOLUME 10.2 fL (8.7-11.7); NRBC-AUTO% 0.2 % (0.0-0.2); PLATELET CLUMPS FLAG 0 (0-99); PLATELET COUNT 228 10^3/uL (150-400); RED BLOOD CELL COUNT 3.17 10^6/uL (4.18-5.33); RED CELL DISTRIBUTION WIDTH 17.7 % (11.5-15.2)
[2016-05-13 04:44] LABS: INR 1.1 (0.83-1.16); PROTIME(PATIENT) 14.1 SEC (12.0-15.0)
[2016-05-13 04:45] LABS: LEFT SHIFT FLG 110 (0-99)
[2016-05-13 04:49] LABS: APTT 24.3 SEC (23.0-38.0)
[2016-05-13 05:19] LABS: SCAN NEGATIVE
[2016-05-13] MEDS: NS 1,000 ML IV SCH (07:34)
--- NOTE | 2016-05-13 10:18 | SOAPPROG ---
SOAP Progress Note Assessment/Plan: Assessment: Patient with yeast on cx, will start fluconazole. Discussed anemia, cont to monitor. Poss start clears when bowel function apparent. Ambulate, IS. Plan: 05/09/16 17:11 05/10/16 08:54 05/11/16 08:41 05/12/16 08:40 05/13/16 10:16 Subjective: Patient with decreased abd pain, now notes some back pain as well as insomnia. No flatus, BM. No N/V. Objective: Vital Signs Temp Pulse Resp BP Pulse Ox 37.6 C 99 12 128/89 H 92 05/13/16 08:00 05/13/16 08:00 05/13/16 08:00 05/13/16 08:00 05/13/16 08:00 Microbiology 05/11/16 21:13 Gram Stain - Final Abdomen - Tissue 05/11/16 20:59 Gram Stain - Final Abdomen - Eswab Laboratory Results 05/13/16 04:10 05/13/16 04:10 05/12/16 05/13/16 05/14/16 05:59 05:59 05:59 Intake Total 2674 2752 Output Total 1835 1994 Balance 839 757 PT 14.1 SEC (12.0-15.0) 05/13/16 04:10 INR 1.10 (0.83-1.16) 05/13/16 04:10 Alert, NAD RRR Abd soft, decreased distention Min TTP at incision Inc C/D/I RODRIGO serosang ICD10 Worksheet Patient Problems: Problems Problem Status Diagnosed Abdominal pain Acute Small bowel obstruction Acute
[2016-05-13] MEDS: FLUCONAZOLE/NaCl 200 ML IV SCH (10:25)
[2016-05-13] MEDS: KETOROLAC 15 MG/1 ML SDV IVP SCH ×3 (11:06→20:08)
[2016-05-13] MEDS ORDERED: KETOROLAC 15 MG/1 ML SDV IVP SCH (14:00)
[2016-05-13] MEDS: ERTAPENEM 1 GM in NS 100 ML IV SCH (20:07)
[2016-05-13] MEDS: TPN W/ FAMOTIDINE 1 EA BAG IV SCH (22:20)
[2016-05-14] MEDS: KETOROLAC 15 MG/1 ML SDV IVP SCH ×5 (01:26→23:03)
[2016-05-14] MEDS: NS 1,000 ML IV SCH (01:33)
[2016-05-14] MEDS: ONDANSETRON 4 MG/2 ML VIAL IVP PRN ×3 (01:34→20:36)
[2016-05-14 03:52] LABS: ADD DIFF? YES; ADD MORPH? NO; FRAGMENT RBC FLAG 0 (0-99); HEMATOCRIT 27.7 % (38.0-47.0); HEMOGLOBIN 8.9 g/dL (12.6-16.3); LEFT SHIFT FLG 70 (0-99); LIPEMIA HEMOLYSIS FLAG 80 (0-99); MEAN CELL HEMOGLOBIN 26.4 pg (27.9-34.1); MEAN CELL HEMOGLOBIN CONCENTR. 32.1 g/dL (32.4-36.7); MEAN CELL VOLUME 82.2 fL (81.5-99.8); MEAN PLATELET VOLUME 9.5 fL (8.7-11.7); PLATELET CLUMPS FLAG 0 (0-99); PLATELET COUNT 224 10^3/uL (150-400); RED BLOOD CELL COUNT 3.37 10^6/uL (4.18-5.33); RED CELL DISTRIBUTION WIDTH 17.9 % (11.5-15.2)
[2016-05-14 03:55] LABS: ADD SCAN? NO; ATYPICAL LYMPHOCYTE FLAG 100 (0-99)
[2016-05-14 04:01] LABS: ALANINE AMINOTRANSFERASE 28 IU/L (9-52); ALBUMIN 1.8 g/dL (3.5-5.0); ALKALINE PHOSPHATASE 69 IU/L (38-126); ANION GAP 4 mEq/L (8-16); ASPARTATE AMINOTRANSFERASE 23 IU/L (14-46); BILIRUBIN,TOTAL 0.4 mg/dL (0.1-1.4); CALCIUM 6.9 mg/dL (8.5-10.4); CARBON DIOXIDE 31 mEq/l (22-31); CHLORIDE 100 mEq/L (97-110); CREATININE 0.5 mg/dL (0.6-1.0); GLOMERULAR FILTRATION RATE > 60; GLUCOSE 133 mg/dL (70-100); SODIUM 135 mEq/L (134-144); TOTAL PROTEIN 4.3 g/dL (6.3-8.2)
[2016-05-14 04:06] LABS: APTT 26.9 SEC (23.0-38.0); INR 1.06 (0.83-1.16); PROTIME(PATIENT) 13.7 SEC (12.0-15.0)
[2016-05-14 04:20] LABS: PLATELET ESTIMATE ADEQUATE (ADEQ)
[2016-05-14] MEDS: FLUCONAZOLE/NaCl 200 ML IV SCH (08:31)
[2016-05-14 08:33] LABS: MAGNESIUM 1.8 mg/dL (1.6-2.3)
--- NOTE | 2016-05-14 10:33 | SOAPPROG ---
SOAP Progress Note Assessment/Plan: Assessment: Stable. Discussed situation and meds at length with pt and family. Rec cont ambulation, slow with po fluids. Discussed K, phos with pharmacy and it will be addressed via TPN. Questions answered. 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 Objective: Vital Signs Temp Pulse Resp BP Pulse Ox 36.9 C 112 H 16 124/86 H 96 05/14/16 08:00 05/14/16 08:00 05/14/16 08:00 05/14/16 08:00 05/14/16 08:00 Microbiology 05/11/16 20:59 Gram Stain - Final Abdomen - Eswab 05/11/16 21:13 Gram Stain - Final Abdomen - Tissue Laboratory Results 05/14/16 03:40 05/14/16 03:40 05/13/16 05/14/16 05/15/16 05:59 05:59 05:59 Intake Total 9170 4496 Output Total 7723 2441 Balance 757 -2912 PT 13.7 SEC (12.0-15.0) 05/14/16 03:40 INR 1.06 (0.83-1.16) 05/14/16 03:40 Alert, NAD Slightly tachy but reg Abd sl distended but soft, inc TTP Inc C/D/I RODRIGO serosang ICD10 Worksheet Patient Problems: Problems Problem Status Diagnosed Abdominal pain Acute Small bowel obstruction Acute
[2016-05-14] MEDS: HYDROmorphONE/DILAUDID 6 MG/30 ML PCA IV PRN (10:36)
[2016-05-14] MEDS: PROMETHAZINE HCL 25 MG/ML INJ IVP PRN (10:53)
[2016-05-14] MEDS ORDERED: K PHOS 15 MMOL in D5W 250 ML IV ONE (15:00)
[2016-05-14] MEDS: POTASSIUM Cl (KCl) 100 ML IV SCH ×4 (15:07→19:07)
[2016-05-14] MEDS: ERTAPENEM 1 GM in NS 100 ML IV SCH (20:30)
[2016-05-14] MEDS: TPN W/ FAMOTIDINE 1 EA BAG IV SCH (21:34)
[2016-05-14] MEDS: TEMAZEPAM 15 MG CAP PO PRN (23:02)
[2016-05-15] MEDS: KETOROLAC 15 MG/1 ML SDV IVP SCH ×4 (04:46→23:36)
[2016-05-15 05:10] LABS: ADD DIFF? YES; ADD MORPH? NO; ADD SCAN? NO; ATYPICAL LYMPHOCYTE FLAG 0 (0-99); FRAGMENT RBC FLAG 0 (0-99); HEMATOCRIT 26.6 % (38.0-47.0); HEMOGLOBIN 8.7 g/dL (12.6-16.3); LEFT SHIFT FLG 80 (0-99); LIPEMIA HEMOLYSIS FLAG 80 (0-99); MEAN CELL HEMOGLOBIN 26.6 pg (27.9-34.1); MEAN CELL HEMOGLOBIN CONCENTR. 32.7 g/dL (32.4-36.7); MEAN CELL VOLUME 81.3 fL (81.5-99.8); MEAN PLATELET VOLUME 9.6 fL (8.7-11.7); PLATELET CLUMPS FLAG 0 (0-99); PLATELET COUNT 231 10^3/uL (150-400); RED BLOOD CELL COUNT 3.27 10^6/uL (4.18-5.33); RED CELL DISTRIBUTION WIDTH 18.2 % (11.5-15.2)
[2016-05-15 05:14] LABS: ALANINE AMINOTRANSFERASE 32 IU/L (9-52); ALKALINE PHOSPHATASE 76 IU/L (38-126); ANION GAP 5 mEq/L (8-16); ASPARTATE AMINOTRANSFERASE 18 IU/L (14-46); BILIRUBIN,TOTAL 0.4 mg/dL (0.1-1.4); CALCIUM 6.6 mg/dL (8.5-10.4); CARBON DIOXIDE 29 mEq/l (22-31); CHLORIDE 100 mEq/L (97-110); CREATININE 0.5 mg/dL (0.6-1.0); GLOMERULAR FILTRATION RATE > 60; GLUCOSE 100 mg/dL (70-100); MAGNESIUM 2.1 mg/dL (1.6-2.3); POTASSIUM 3.9 mEq/L (3.5-5.2); SODIUM 134 mEq/L (134-144); TOTAL PROTEIN 4.5 g/dL (6.3-8.2); TRIGLYCERIDE 140 mg/dL (35-135)
[2016-05-15 05:15] LABS: APTT 28.8 SEC (23.0-38.0); INR 1.15 (0.83-1.16); PROTIME(PATIENT) 14.7 SEC (12.0-15.0)
[2016-05-15 06:09] LABS: PLATELET ESTIMATE ADEQUATE (ADEQ)
[2016-05-15 06:10] LABS: MICROCYTES 1+
[2016-05-15 06:11] LABS: POLYCHROMASIA 1+
[2016-05-15] MEDS: ONDANSETRON 4 MG/2 ML VIAL IVP PRN (10:03)
[2016-05-15] MEDS: FLUCONAZOLE/NaCl 200 ML IV SCH (10:03)
--- NOTE | 2016-05-15 10:06 | SOAPPROG ---
SOAP Progress Note Assessment/Plan: Assessment: Still with elevated HR. Check CXR, start lovenox. D/w patient and family at length, questions answered. If no improvement will repeat CT. Cont rosita, cont RODRIGO. D/w RN re: attempted contact 05/14. No call was received via either pager or cell phone; reviewed appropriate number for contact. Plan: 05/09/16 17:11 05/10/16 08:54 05/11/16 08:41 05/12/16 08:40 05/13/16 10:16 05/14/16 10:31 05/15/16 10:04 Subjective: Patient feels better overall. Decreased abd and back pain. [place] po without nausea. + flatus - BM. Objective: Vital Signs Temp Pulse Resp BP Pulse Ox 37.3 C 124 H 18 107/79 96 05/15/16 06:00 05/15/16 06:00 05/15/16 06:00 05/15/16 06:00 05/15/16 06:00 Microbiology 05/11/16 20:59 Gram Stain - Final Abdomen - Eswab 05/11/16 21:13 Gram Stain - Final Abdomen - Tissue Laboratory Results 05/15/16 04:45 05/15/16 04:45 05/14/16 05/15/16 05/16/16 05:59 05:59 05:59 Intake Total 1758 2549 Output Total 4621 3100 Balance -2912 -551 PT 14.7 SEC (12.0-15.0) 05/15/16 04:45 INR 1.15 (0.83-1.16) 05/15/16 04:45 Alert, NAD Tachy but reg Abd sl distende but soft, inc TTP Inc C/D/I RODRIGO serous ICD10 Worksheet Patient Problems: Problems Problem Status Diagnosed Abdominal pain Acute Small bowel obstruction Acute
[2016-05-15] MEDS: NS 1,000 ML IV SCH (11:26)
--- NOTE | 2016-05-15 11:39 | DX ---
Portable AP Upright Chest - May 15, 2016, at 10:37 a.m. Clinical History: 30-year-old female with tachycardia and hypoxia. The patient has had recent interna l hernia and small bowel obstruction surgery. Comparison Study: Chest, dated May 12, 2016. Findings: Again noted is a right-sided PICC line, which terminates at the SVC/right atrial junction. Oxygen tubing is in place. There is a sigmoid-shaped thoracolumbar scoliosis. The cardiac size is at the upper limits of normal, and there is left retrocardiac pleuroparenchymal consolidation, consisten t with atelectasis, infiltrate, and/or component of pleural fluid. There is no pneumothorax. Impression: 1. Left retrocardiac pleuroparenchymal consolidation, consistent with atelectasis, infiltrate, and/or pleural fluid. 2. Sigmoid-shaped thoracolumbar scoliosis.
[2016-05-15] MEDS: ENOXAPARIN 40 MG/0.4 ML SYR SC SCH (11:54)
[2016-05-15] MEDS ORDERED: D10W 1,000 ML IV SCH (15:30)
[2016-05-15] MEDS ORDERED: CALCIUM GLUCONATE 50 ML IV ONE (17:00)
[2016-05-15] MEDS ORDERED: IOPAMIDOL (ISOVUE-300) 50 ML VIAL IV ONE (18:32)
--- NOTE | 2016-05-15 20:03 | CT ---
CT Abdomen and Pelvis, With Intravenous Contrast History: Elevated white blood cell count. Small bowel obstruction, bowel perforation. Technique: The patient received dilute oral contrast prior to imaging. 90 mL of Isovue-300 were giv en intravenously by automated power machine injector. Multidetector helical CT was performed through the abdomen and pelvis using dose reduction technology. Comparison: Compare May 11, 2016, and May 08, 2016. Findings: Previously demonstrated large pelvic abscess is well evacuated by a surgical drainage tube via the right lower quadrant. Only a few scattered gas bubbles are found within the peritoneal cavi ty, near the diaphragm, improved from May 11. Fluid in the lesser sac has increased around the s tomach. A small pocket of fluid and air along the anteroinferior surface of the left lobe of the stacey er has diminished and now measures only 2.7 cm transverse x 1.6 cm AP. Pockets of fluid with thin en hancing margins are found in between small bowel loops in the left side of the abdomen, including a 3 .2-cm collection anteriorly and a 3.8-cm collection further posteriorly. Anterior to the ascending c olon, a pocket of fluid measures up to 5.4 cm AP x 5.2 cm transverse. Fluid is found along both side s of the greater omentum, more anteriorly than posteriorly. Multiple surgical clips are found in the lower abdomen. Mild left pleural effusion is slightly larger than May 11, with slight worsening of atelectasis of left lower lobe. Impressions 1. Drainage of pelvic abscess. 2. Scattered foci of fluid pockets elsewhere in the abdomen, including interloop abscesses. 3. Resolution of small bowel obstruction.
[2016-05-15] MEDS: ERTAPENEM 1 GM in NS 100 ML IV SCH (21:58)
[2016-05-15] MEDS: TPN W/ FAMOTIDINE 1 EA BAG IV SCH (22:16)
[2016-05-15] MEDS: TEMAZEPAM 15 MG CAP PO PRN (22:36)
[2016-05-15] MEDS: HYDROmorphONE/DILAUDID 6 MG/30 ML PCA IV PRN (23:35)
[2016-05-16 05:31] LABS: POTASSIUM 4.4 mEq/L (3.5-5.2)
[2016-05-16] MEDS: KETOROLAC 15 MG/1 ML SDV IVP SCH ×3 (06:00→18:45)
[2016-05-16] MEDS: FLUCONAZOLE/NaCl 200 ML IV SCH (09:55)
[2016-05-16] MEDS: NS 1,000 ML IV SCH (09:55)
[2016-05-16] MEDS: ENOXAPARIN 40 MG/0.4 ML SYR SC SCH (10:53)
--- NOTE | 2016-05-16 11:02 | SOAPPROG ---
SOAP Progress Note Assessment/Plan: Assessment: Stable to improving. I have recommended potential aspiration of the larger fluid collection; the patient wishes to wait for oracle ebs consultant input to proceed. Plan: 05/09/16 17:11 05/10/16 08:54 05/11/16 08:41 05/12/16 08:40 05/13/16 10:16 05/14/16 10:31 05/15/16 10:04 05/16/16 11:00 Subjective: Patient feels better, pain improved, no N/V. Currently NPO for possible procedure. Objective: Vital Signs Temp Pulse Resp BP Pulse Ox 36.8 C 124 H 16 119/75 98 05/16/16 09:53 05/16/16 09:53 05/16/16 09:53 05/16/16 09:53 05/16/16 09:53 Microbiology 05/11/16 21:13 Gram Stain - Final Abdomen - Tissue 05/11/16 20:59 Gram Stain - Final Abdomen - Eswab Laboratory Results 05/15/16 04:45 05/16/16 05:00 05/15/16 05/16/16 05/17/16 05:59 05:59 05:59 Intake Total 2549 2075 652 Output Total 3100 3275 320 Balance -551 -1200 332 PT 14.7 SEC (12.0-15.0) 05/15/16 04:45 INR 1.15 (0.83-1.16) 05/15/16 04:45 Alert, NAD ICD10 Worksheet Patient Problems: Problems Problem Status Diagnosed Abdominal pain Acute Small bowel obstruction Acute
--- NOTE | 2016-05-16 12:27 | GCON ---
[f rep st] CONSULTATION INFECTIOUS DISEASE CONSULTATION DATE OF CONSULTATION: 05/16/2016 REFERRING PHYSICIAN: Carolin Argueta MD REASON FOR CONSULTATION: Multiple intraabdominal abscesses, for further evaluation and opinion. CHIEF COMPLAINT: Abdominal pain, tachycardia. HISTORY OF PRESENT ILLNESS: This is a 30-year-old, female, with a past medical history sig nificant for mitral valve prolapse and scoliosis, who was admitted on the due to complaints of ab dominal pain. She states that the abdominal pain initially started while she was in [place] around march. At that time, she went to the hospital there and had a CT scan of the abdomen that showe d ileus versus small bowel obstruction. She had an NG tube for about 24 hours while she was there wi th some improvement in her symptoms and then was discharged. Subsequently, later that day or the day, she had a couple of episodes of vomiting, but was able to take her flight back here to [facility]. She has seen her primary care doctor who was monitoring her iron levels, which were apparently lo w. She was referred to GI, Dr. Cisneros. No colonoscopy or EGD was done at that time. Due to increas ing abdominal pain, she ended up having a CT scan done on May 08 which showed high-grade closed lo op small bowel obstruction in the mid pelvis with small bowel air-fluid levels, edema and free fluid, and a possible internal hernia. She was seen by Surgery and taken to the OR that same day, where sh e had a diagnostic laparoscopy, lysis of adhesions, and repair of the internal hernia. Per the opera tive note, there was a band of adhesions pinning the intestine. This was lysed. The bowel was retur per to its standard anatomic position. Blood flow was noted to improve. Per the operative note, the bowel continued to improve in its color and had peristalsis without difficulty. She was started on antibiotics with Invanz on May 09 due to low-grade temperatures and tachycardia. This had resolv ed the low-grade temperature at the time, but she still remained tachycardic. She ended up undergoin g another CAT scan of the abdomen on May 11 which showed a complex fluid collection measuring 1.4 x 7 x 7 cm in the posterior cul-de-sac and the anterior upper pelvis measuring 11.4 x 4.8 x 9.2 cm w ith a concern for possible bowel perforation and early abscess formation. She was taken back to the OR on the . There was a significant amount of succus in the pelvis. This was irrigated and aspi rated. There was a 20 cm section of small bowel that was hemorrhagic and there were 3-5 small puncta te perforations near the mesenteric border. There was some thrombosis noted in the mesentery adjacen t to the bowel. A RODRIGO drain was left in place. Cultures from that surgery grew out Sarah albicans and Prevotella buccae. The Gram stain had gram-positive cocci. Fluconazole was then added on . However , over the last 2 days, her white blood cell count has steadily gone up and yesterday it was 16.9. She had some mild bandemia noted as well. She remains tachycardic with intermittent sp iking temperatures to 39.4 as the highest yesterday. She had a followup CT scan of the abdomen done yesterday evening which showed drainage of the pelvic abscess. However, there were scattered foci of fluid pockets along with interloop abscesses as well. Infectious Disease is now consulted for furth er evaluation. The patient states that she is requiring minimal amounts of pain medication. She still continues to have abdominal distention but overall her abdominal pain is not as bad as a few days ago. She still remains tachycardic. She has intermittent temperatures. She denies pleuritic chest pain. She had 1 small formed bowel movement today and has been passing gas over the last several days. REVIEW OF SYSTEMS: GENERAL: Fevers with shaking chills that last for several hours. HEAD: Denies any headaches. EYES: No change in vision. ENT: No sore throat, difficulty swallowing, ear pain or ear drainage. CARDIOVASCULAR: She is tachycardic. Denies any chest pain, however. RESPIRATORY: Denies any shortness of breath. She has a mild dry cough with no sputum production. GI: Abdominal distention. Denies nausea or vomiting. : Denies any dysuria, hematuria. BACK: Denies any back pain. MUSCULOSKELETAL: Denies any joint pains or muscle aches. SKIN: Denies any rashes. Rest of 10-point review of systems is essentially negative. PAST MEDICAL HISTORY: Significant for scoliosis, mitral valve prolapse with murmur. PAST SURGICAL HISTORY: None prior to this admission. ALLERGIES: Cefaclor which gives her a rash. She said she was a young child at the time, without any shortness of breath or swelling. She states that she has tolerated amoxicillin fine. SOCIAL HISTORY: She is a nonsmoker. Drinks alcohol socially. 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 She was r ecently . She has 1 dog who is healthy. Recently traveled to [place]. FAMILY HISTORY: Significant for diverticulitis. MEDICATIONS: As per JUN. PHYSICAL EXAMINATION: VITAL SIGNS: Temperature current is 36.8, T-max today 38.0, pulse is 124, res piratory rate is 16, blood pressure 119/75, saturation 98% on room air. GENERAL: Patient is sitting up in bed, in no acute respiratory distress. Awake, alert, and oriented x3. HEENT: Head is normoc ephalic, atraumatic. Pupils are equal, round, reactive to light. No conjunctival injection. No pet echiae noted. Oropharynx without posterior erythema. There is mild coating on the back of the tongu e. No whitish plaques noted on the buccal mucosa. CARDIOVASCULAR: She is tachycardic. Mild soft s ystolic murmur appreciated. RESPIRATORY: Clear to auscultate bilaterally. No obvious rhonchi appre ciated. ABDOMEN: Good bowel sounds. Abdomen is distended. Midline surgical incision site is noted with aury in place. She has mild mostly serosanguineous drainage noted from there, perhaps inter mixed with some mild purulent drainage. She has a RODRIGO drain in the right lower quadrant which has mos tly serosanguineous drainage. Abdomen is mildly tender to palpation. EXTREMITIES: No lower extremi ty edema. MUSCULOSKELETAL: No obvious joint effusions or pain on palpation of the joints. SKIN: N o obvious rashes. LABS: White blood cell count 15.9, hemoglobin 8.7, platelets 231, neutrophil count 83% with 1% bande amadeo. Chemistry: Sodium 134, potassium 3.9, chloride 100, bicarb 29, BUN 5, creatinine 0.5. LFTs we re within the normal range. Urinalysis on admission showed some hematuria, 2+ blood, 1+ ketones with WBCs 1-3. Microbiology: Abdominal cultures showed Sarah albicans in all specimens, along with Pr bert cortez. Imaging results have all been reviewed by me and are stated above. ASSESSMENT: 1. Multiple intraabdominal abscesses secondary to recent intestinal perforation. 2. Fevers. PLAN: despite broad antimicrobial and antifungal coverage with Invanz and fluconazole, she still rem ains tachycardic with intermittent spiking temperatures, as well as a rising white blood cell count. She is also having some drainage from her incision site as well. CT scan shows multiple small pocke ts of abscess collections. Given her hemodynamic status, fevers, rising white blood cell count, oozi ng from the abdominal site and CAT scan findings, concern that she would benefit with another more fo rmal washout in the OR. This was explained in detail to the patient, her and mother at the [facility]. Different modalities of therapeutics were discussed; however, given her above clinical statu s, my recommendations would be for her to go for a more formal washout to more aggressively address t he multiple pockets of abscesses that are present. We will discontinue Invanz and fluconazole and br oaden her antimicrobial coverage to Zosyn to better cover enterococci as well as Pseudomonas, along w ith the other broad coverage for gram-negative anaerobes and change fluconazole to micafungin in the event that she possibly may have a Sarah albicans that is less sensitive to fluconazole. This was explained to the patient and her family in detail. She states that she has tolerated amoxicillin in the past. We will closely monitor her. Care was discussed and coordinated with the surgical team as well. Thank you very much for allowing this opportunity to care for your patient in consultation. /[id number]/MODL
[2016-05-16] MEDS: PIPERACILLIN/TAZO 4.5 GM/DEX 100 ML IV SCH ×2 (12:28→19:05)
[2016-05-16] MEDS: MICAFUNGIN NA 100 MG in NS 100 ML IV SCH (14:12)
[2016-05-16] MEDS ORDERED: BUPIVACAINE 0.5% 30 ML SDV ONE (14:43)
[2016-05-16] MEDS ORDERED: KETOROLAC 30 MG/1 ML SDV ONE (16:12)
[2016-05-16] MEDS ORDERED: ONDANSETRON 4 MG/2 ML VIAL ONE (16:12)
[2016-05-16] MEDS ORDERED: fentaNYL 100 MCG/2 ML INJ ONE ×3 (16:12→18:34)
[2016-05-16] MEDS ORDERED: DEXAMETHASONE 4 MG/ML VIAL ONE (16:12)
[2016-05-16] MEDS ORDERED: ROCURONIUM 50 MG/5 ML VIAL ONE (16:12)
[2016-05-16] MEDS ORDERED: PROPOFOL 200 MG/20 ML VIAL ONE (16:13)
[2016-05-16] MEDS ORDERED: MIDAZOLAM 2 MG/2 ML VIAL ONE (16:16)
[2016-05-16] MEDS ORDERED: SUGAMMADEX SODIUM 200 MG/2 ML VIAL IVP ONE (17:32)
[2016-05-16] MEDS ORDERED: HYDROmorphONE/DILAUDID 1 MG/ML SYR ONE (18:13)
--- NOTE | 2016-05-16 20:33 | POSTOPPROG ---
Post Op Note Date of Operation: 05/16/16 Surgeon: Carolin Argueta Psychotherapist Social Worker: Zandra Anesthesiologist: luis angel Anesthesia: GET(General Endotracheal) Pre-op Diagnosis: intrabdominal abscess Post-op Diagnosis: same Indication: 30 yo s.p small bowel resection, elevated wbc, tachycardia, fluid collectio Procedure: ex lap with wash out Findings: 650 cc of fluid intraloop and pelvis Inf/Abcess present in the surg proc area at time of surgery?: Yes Depth: Organ Space EBL: Minimal Drains: Chance Vallecillo Specimen(s): fluid
[2016-05-16] MEDS: ONDANSETRON 4 MG/2 ML VIAL IVP PRN (21:06)
[2016-05-16] MEDS: TPN W/ FAMOTIDINE 1 EA BAG IV SCH (21:17)
--- NOTE | 2016-05-16 21:54 | SOAPPROG ---
SOAP Progress Note Assessment/Plan: Assessment: s/p ex lap with wash out Tachycardia resolved Comfortable No staining on dressing RODRIGO with serosanguinous fluid Plan: 05/16/16 21:53 Objective: Vital Signs Temp Pulse Resp BP Pulse Ox 36.6 C 88 14 107/77 97 05/16/16 19:58 05/16/16 19:58 05/16/16 19:58 05/16/16 19:58 05/16/16 19:58 Microbiology 05/11/16 20:59 Gram Stain - Final Abdomen - Eswab 05/11/16 21:13 Gram Stain - Final Abdomen - Tissue Laboratory Results 05/15/16 04:45 05/16/16 05:00 05/15/16 05/16/16 05/17/16 05:59 05:59 05:59 Intake Total 2549 2075 2132 Output Total 3100 9065 660 Balance -551 -1200 1472 PT 14.7 SEC (12.0-15.0) 05/15/16 04:45 INR 1.15 (0.83-1.16) 05/15/16 04:45 ICD10 Worksheet Patient Problems: Problems Problem Status Diagnosed Abdominal pain Acute Small bowel obstruction Acute
[2016-05-16] MEDS: PROMETHAZINE HCL 25 MG/ML INJ IVP PRN (22:39)
[2016-05-17] MEDS: PIPERACILLIN/TAZO 4.5 GM/DEX 100 ML IV SCH ×3 (01:32→12:21)
[2016-05-17] MEDS: KETOROLAC 15 MG/1 ML SDV IVP SCH ×5 (01:32→23:13)
--- NOTE | 2016-05-17 04:51 | GCON ---
[f rep st] CONSULTATION Amended report DATE OF CONSULTATION: 05/16/2016 REFERRING PHYSICIAN: Venkatesh Ortiz MD CHIEF COMPLAINT: Abdominal pain, tachycardia. HISTORY OF PRESENT ILLNESS: The patient is a 30-year-old woman who was traveling in [place] on her honeymoon when she developed abdominal pain. An NG tube was placed and she had some resolution of the bowel obstruction, and was able to travel back home. She has been seen by her primary care doctor, as well as Dr. Cisneros. She was being treated for iron-deficiency anemia. Her abdominal pain was increasing, and she had a CT scan of her abdomen and pelvis on May 08, 2016, which showed a high-grade closed-loop small bowel obstruction in the mid pelvis with edema, free fluid, and a possible internal hernia. She was taken to the operating room by Dr. Venkatesh Ortiz, and he performed diagnostic laparoscopy with lysis of adhesions and repair of internal hernia. There was a defect in the transverse colonic mesentery, which created a closed loop bowel obstruction. The bowel was viable. She was admitted to the floor postoperatively. On April 10, she had recurrence of tachycardia and increased distention. CT scan showed large fluid collections with free air. She returned to the operating room for an exploratory laparotomy on May 11. There was multiple perforations along the section of small bowel that had been reduced from the prior surgery. No other lesions were identified. He performed a small bowel resection. She was progressing and had some return of bowel function. On May 15, she was still tachycardic, and there was a request for transfer to the [facility]. Since this was a lateral transfer, it was unsure if insurance would approve this. A second opinion was requested. I reviewed her CT scan that showed fluid pockets in the abdomen including intra-loop abscesses with the largest being 5.4 x 5.2 cm. Her white blood cell count had increased to almost 17,000, and she remained tachycardic. I reviewed her imaging and her laboratory work. I asked the lab to send off susceptibilities on her microbiology. Due to the constellation of findings, I consulted Infectious Disease, and I recommended return to the operating room for exploratory laparotomy and washout. PAST MEDICAL HISTORY: Mitral valve prolapse. PAST SURGICAL HISTORY: None prior to this admission. SOCIAL HISTORY: She is newly . 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 She is a nonsmoker. She drinks alcohol socially. FAMILY HISTORY: Significant for diverticulitis. MEDICATIONS: Per JUN. ALLERGIES: Cefaclor. REVIEW OF SYSTEMS: Tachycardia, abdominal distention. Otherwise 10 point review of systems negative. PHYSICAL EXAMINATION: VITAL SIGNS: I evaluated her around 8:30 in the morning , 37.1, 116, 128/78, 16, 95%. GENERAL: Pleasant, sitting up in chair, at bedside. HEENT: Normocephalic. No gross hearing deficits. Mucous membranes moist. Pupils equal and round. LUNGS: Clear to auscultation. Decreased in bases. CARDIAC: Tachycardic. ABDOMEN: Bowel sounds are present. She is distended. Her incision is clean, dry, and intact. The RODRIGO drain has serosanguineous fluid in it. She is distended. SKIN: Warm and dry. IMPRESSION/PLAN: The patient is a 30-year-old status post laparoscopic lysis of adhesions with subsequent small bowel resection. There was gross contamination at the time of the 2nd surgery. Due to tachycardia, increasing white blood cell count and significant fluid collections on the CT scan, I recommend we go to the operating room for exploratory laparotomy with washout. I appreciate Dr. Chopra seeing her. I came back and discussed the case again when the patient's mom was present. Proceed with going to the operating room. Risks and benefits were discussed. /[id number]/MODL Add acc#, 05/17/16, jenn RHODES
[2016-05-17 05:05] LABS: ADD DIFF? YES; ADD MORPH? NO; ADD SCAN? NO; ATYPICAL LYMPHOCYTE FLAG 90 (0-99); FRAGMENT RBC FLAG 20 (0-99); HEMATOCRIT 25.1 % (38.0-47.0); HEMOGLOBIN 7.9 g/dL (12.6-16.3); LEFT SHIFT FLG 40 (0-99); LIPEMIA HEMOLYSIS FLAG 80 (0-99); MEAN CELL HEMOGLOBIN 26.5 pg (27.9-34.1); MEAN CELL HEMOGLOBIN CONCENTR. 31.5 g/dL (32.4-36.7); MEAN CELL VOLUME 84.2 fL (81.5-99.8); MEAN PLATELET VOLUME 10.1 fL (8.7-11.7); PLATELET CLUMPS FLAG 0 (0-99); PLATELET COUNT 315 10^3/uL (150-400); RED BLOOD CELL COUNT 2.98 10^6/uL (4.18-5.33); RED CELL DISTRIBUTION WIDTH 18.3 % (11.5-15.2)
[2016-05-17 05:33] LABS: ALANINE AMINOTRANSFERASE 39 IU/L (9-52); ALBUMIN 1.9 g/dL (3.5-5.0); ALKALINE PHOSPHATASE 101 IU/L (38-126); ANION GAP 7 mEq/L (8-16); ASPARTATE AMINOTRANSFERASE 29 IU/L (14-46); BILIRUBIN,TOTAL 0.5 mg/dL (0.1-1.4); CALCIUM 7.2 mg/dL (8.5-10.4); CARBON DIOXIDE 26 mEq/l (22-31); CHLORIDE 103 mEq/L (97-110); CREATININE 0.4 mg/dL (0.6-1.0); GLOMERULAR FILTRATION RATE > 60; GLUCOSE 191 mg/dL (70-100); MAGNESIUM 2.4 mg/dL (1.6-2.3); POTASSIUM 5.2 mEq/L (3.5-5.2); SODIUM 136 mEq/L (134-144)
--- NOTE | 2016-05-17 05:36 | GOP ---
[f rep st] OPERATIVE REPORT DATE OF OPERATION: 05/16/2016 SURGEON: Carolin Argueta MD TAX ECONOMIST: Deena De Paz, GERRY. ANESTHESIA: Norberto Walter MD/General. PREOPERATIVE DIAGNOSIS: Abdominal abscess. POSTOPERATIVE DIAGNOSIS: Abdominal abscess. PROCEDURE PERFORMED: Exploratory laparotomy with washout. FINDINGS: serosanguinous fluid. About 650 ccs of fluid SPECIMENS: Fluid for microbiology. ESTIMATED BLOOD LOSS: Less than 10 cc. INDICATIONS: Arely Chiuurger is a 30-year-old, who had previous reduction of internal hernia and small-bowel resection. She had tachycardia, leukocytosis , and fluid collections. I took her to the operating room for washout. DESCRIPTION OF PROCEDURE: Arely was brought into the operating room, placed supine on the table, and general anesthesia was administered. Her abdomen was prepped with Betadine and draped in the usual sterile fashion. I removed her previous aury. I opened the midline incision. There was just a small amount of fluid beneath the skin. I removed the midline suture. I opened her abdomen. Omentum was overlying the bowel. I was able to carefully sweep the omentum away and there was fluid immediately encountered. I suctioned this. It was serosanguineous fluid. There was no jasen purulence or feculent material. I carefully identified the transverse colon and the right colon and left colon. I carefully swept the small bowel out of the pelvis, and I carefully ran the bowel. There were multiple interloop fluid collections. There was a large fluid collection in the right lower quadrant. I performed copious irrigation with 8 L of fluid. Once the return of irrigation was completely clear, I examined the abdomen again and there were no injuries. The anastomosis was widely patent. A drain was placed which exited the left lower quadrant in the pelvis, sweeping up into the right pericolic gutter. This was sutured in place with 3-0 nylon. Fascia closed with #1 PDS. Skin closed with aury. Dressing applied. She was awakened in the operating room, extubated, transferred to the PACU in stable condition. /[id number]/MODL MTDD
[2016-05-17 05:48] LABS: PLATELET ESTIMATE ADEQUATE (ADEQ); POLYCHROMASIA 1+
[2016-05-17] MEDS: MICAFUNGIN NA 100 MG in NS 100 ML IV SCH (09:57)
[2016-05-17] MEDS: ENOXAPARIN 40 MG/0.4 ML SYR SC SCH (10:01)
--- NOTE | 2016-05-17 10:45 | SOAPPROG ---
SOAP Progress Note Assessment/Plan: Assessment: 30yo F POD#1 s/p ex lap with washout. Serous abdominal fluid - no pus. Continue RODRIGO NPO sips and chips OK Pain controlled with ONCOLOGY NAVIGATOR Tachycardia improved Leukocytosis - continue to follow labs Encouraged ambulation and deep breathing/IS Appreciate ID input and management of IV antibiotics S: Pain 2/10 when laying in bed but increased with standing and moving O: laying in bed, comfortable, NAD, at bedside clear to auscultation anteriorly Regular rate and rhythm Bowel sounds present but hypoactive, abdomen distended but slightly less than yesterday. Soft and nontender. incision clean, dry and intact without surrounding erythema or evidence of infection. RODRIGO serosanguineous. 05/17/16 10:45 Objective: Vital Signs Temp Pulse Resp BP Pulse Ox 36.4 C 83 18 111/68 94 05/17/16 10:00 05/17/16 10:00 05/17/16 10:00 05/17/16 10:00 05/17/16 10:00 Microbiology 05/16/16 17:00 Gram Stain - Final Peritoneal Fluid - Aspirate 05/11/16 21:13 Gram Stain - Final Abdomen - Tissue 05/11/16 20:59 Gram Stain - Final Abdomen - Eswab Laboratory Results 05/17/16 04:50 05/17/16 04:50 05/16/16 05/17/16 05/18/16 05:59 05:59 05:59 Intake Total 2075 3212 Output Total 3275 2800 Balance -1200 412 PT 14.7 SEC (12.0-15.0) 05/15/16 04:45 INR 1.15 (0.83-1.16) 05/15/16 04:45 ICD10 Worksheet Patient Problems: Problems Problem Status Diagnosed Abdominal pain Acute Small bowel obstruction Acute
[2016-05-17] MEDS: PIPERACILLIN NA/TAZO 4.5 GM in D5W 100 ML IV SCH ×2 (18:18→23:13)
--- NOTE | 2016-05-17 19:25 | PCMIDPN ---
Assessment/Plan: Assessment/Plan: * Intraabdominal abscesses s/p small bowel perforation and incision and drainage : Fever and tachycardia resolved post-drainage. Gram stain with GPC chains and gram positive rods. Continue zosyn and micafungin pending additional culture data. Initial cultures with C. albicans and Prevotella. Findings and plan discussed with patient and family. 05/17/16 19:21 05/17/16 19:24 Subjective: Patient with abdominal discomfort but improved post-incision and drainage. Objective: Vital Signs Temp Pulse Resp BP Pulse Ox 36.4 C 88 16 102/59 L 95 05/17/16 15:49 05/17/16 15:49 05/17/16 15:49 05/17/16 15:49 05/17/16 15:49 Microbiology 05/16/16 17:00 Gram Stain - Final Peritoneal Fluid - Aspirate 05/11/16 21:13 Gram Stain - Final Abdomen - Tissue 05/11/16 20:59 Gram Stain - Final Abdomen - Eswab Laboratory Results 05/17/16 04:50 05/17/16 04:50 05/16/16 05/17/16 05/18/16 05:59 05:59 05:59 Intake Total 2075 3212 240 Output Total 3275 2800 885 Balance -1200 412 -645 Zosyn #2 Micafungin #2 Gram stain GPC chains, GPR with culture pending - Physical Exam General Appearance: alert, no apparent distress EENT: pharynx normal, No scleral icterus Respiratory: lungs clear, No respiratory distress Cardiac/Chest: regular rate, rhythm, No systolic murmur Abdomen: tender (diffusely; serosanguinous fluid in RODRIGO) Skin: No rash ICD10 Worksheet Patient Problems: Problems Problem Status Diagnosed Abdominal pain Acute Small bowel obstruction Acute
[2016-05-17] MEDS: TPN W/ FAMOTIDINE 1 EA BAG IV SCH (21:03)
[2016-05-17] MEDS: ONDANSETRON 4 MG/2 ML VIAL IVP PRN (23:23)
[2016-05-17] MEDS: TEMAZEPAM 15 MG CAP PO PRN (23:32)
[2016-05-18] MEDS: KETOROLAC 15 MG/1 ML SDV IVP SCH ×4 (06:04→23:17)
[2016-05-18] MEDS: PIPERACILLIN NA/TAZO 4.5 GM in D5W 100 ML IV SCH ×3 (06:04→18:16)
[2016-05-18 08:30] LABS: % IMMATURE GRANULYOCYTES 1.6 % (0.0-1.1); ABSOLUTE IMMATURE GRANULOCYTES 0.27 10^3/uL (0.00-0.10); ADD DIFF? NO; ADD MORPH? NO; ADD SCAN? YES; FRAGMENT RBC FLAG 20 (0-99); HEMATOCRIT 26.4 % (38.0-47.0); HEMOGLOBIN 8.4 g/dL (12.6-16.3); LEFT SHIFT FLG 10 (0-99); LIPEMIA HEMOLYSIS FLAG 80 (0-99); MEAN CELL HEMOGLOBIN 27.5 pg (27.9-34.1); MEAN CELL HEMOGLOBIN CONCENTR. 31.8 g/dL (32.4-36.7); MEAN CELL VOLUME 86.3 fL (81.5-99.8); MEAN PLATELET VOLUME 10.2 fL (8.7-11.7); PLATELET CLUMPS FLAG 0 (0-99); PLATELET COUNT 372 10^3/uL (150-400); RED BLOOD CELL COUNT 3.06 10^6/uL (4.18-5.33); RED CELL DISTRIBUTION WIDTH 18.6 % (11.5-15.2)
[2016-05-18 08:31] LABS: ATYPICAL LYMPHOCYTE FLAG 130 (0-99)
[2016-05-18 09:17] LABS: SCAN NEGATIVE
[2016-05-18] MEDS: ENOXAPARIN 40 MG/0.4 ML SYR SC SCH (09:49)
[2016-05-18] MEDS: MICAFUNGIN NA 100 MG in NS 100 ML IV SCH (09:49)
[2016-05-18] MEDS: HYDROmorphONE/DILAUDID 6 MG/30 ML PCA IV PRN (11:53)
--- NOTE | 2016-05-18 12:46 | SOAPPROG ---
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 Nausea resolved O: Abdomen distended but softer Incision cdi. RODRIGO with serosanguinous fluid Lungs decreased at bases Regular rate Plan: 05/16/16 21:53 05/18/16 12:29 Objective: Vital Signs Temp Pulse Resp BP Pulse Ox 36.9 C 73 16 118/83 H 94 05/18/16 12:00 05/18/16 12:00 05/18/16 12:00 05/18/16 12:00 05/18/16 12:00 Microbiology 05/16/16 17:00 Gram Stain - Final Peritoneal Fluid - Aspirate 05/11/16 21:13 Gram Stain - Final Abdomen - Tissue 05/11/16 20:59 Gram Stain - Final Abdomen - Eswab Laboratory Results 05/18/16 08:10 05/17/16 05/18/16 05/19/16 05:59 05:59 05:59 Intake Total 3212 3262 Output Total 2800 2725 Balance 412 537 PT 14.7 SEC (12.0-15.0) 05/15/16 04:45 INR 1.15 (0.83-1.16) 05/15/16 04:45 ICD10 Worksheet Patient Problems: Problems Problem Status Diagnosed Abdominal pain Acute Small bowel obstruction Acute
[2016-05-18 15:10] LABS: ALANINE AMINOTRANSFERASE 44 IU/L (9-52); ALBUMIN 2.5 g/dL (3.5-5.0); ALKALINE PHOSPHATASE 109 IU/L (38-126); ANION GAP 9 mEq/L (8-16); ASPARTATE AMINOTRANSFERASE 26 IU/L (14-46); BILIRUBIN,TOTAL 0.5 mg/dL (0.1-1.4); CALCIUM 7.9 mg/dL (8.5-10.4); CARBON DIOXIDE 23 mEq/l (22-31); CHLORIDE 103 mEq/L (97-110); CREATININE 0.5 mg/dL (0.6-1.0); GLOMERULAR FILTRATION RATE > 60; GLUCOSE 135 mg/dL (70-100); POTASSIUM 5.1 mEq/L (3.5-5.2); SODIUM 135 mEq/L (134-144); TOTAL PROTEIN 5.9 g/dL (6.3-8.2)
--- NOTE | 2016-05-18 17:18 | PCMIDPN ---
Assessment/Plan: Assessment: Multiple small intra-abdominal abscesses status post bowel perforation following an internal hernia. Patient's clinical status improved greatly after the latest washout. Currently covered on both Zosyn and micafungin. Sarah albicans in the latest culture. Gram-positive cocci is a new finding relative to previous samples. This has not been characterized beyond the morphology and Gram stain at this point. We will continue the Zosyn monotherapy until this is further cultured. Plan: 1. Continue both Zosyn and micafungin. 2. Follow clinical course. 3. Follow identification of the gram-positive cocci in the latest surgical sample. Subjective: Patient is sitting up in bed. She is pleased to have her diet advanced to liquids. Tachycardia has resolved. No subjective fevers although she did have 2 episodes of night sweats last night. Tolerating medications well. Objective: Zosyn # 3 Micafungin # 3 Vital Signs Temp Pulse Resp BP Pulse Ox 36.4 C 93 16 106/73 97 05/18/16 16:00 05/18/16 16:00 05/18/16 16:00 05/18/16 16:00 05/18/16 16:00 Microbiology 05/16/16 17:00 Gram Stain - Final Peritoneal Fluid - Aspirate 05/11/16 21:13 Gram Stain - Final Abdomen - Tissue 05/11/16 20:59 Gram Stain - Final Abdomen - Eswab Anaerobic Culture - Final Sarah Albicans Prevotella Buccae Laboratory Results 05/18/16 08:10 05/18/16 13:45 05/17/16 05/18/16 05/19/16 05:59 05:59 05:59 Intake Total 3212 3262 Output Total 2800 2725 1040 Balance 412 537 -1040 - Physical Exam General Appearance: WD/WN, alert, no apparent distress, non-toxic Respiratory: lungs clear, normal breath sounds, No respiratory distress Cardiac/Chest: regular rate, rhythm, No tachycardia Extremities: non-tender, normal inspection Abdomen: soft, No non-tender Skin: normal color, warm/dry, No rash Neuro/Psych: alert, normal mood/affect ICD10 Worksheet Patient Problems: Problems Problem Status Diagnosed Abdominal pain Acute Small bowel obstruction Acute
[2016-05-18] MEDS: NS 1,000 ML IV SCH (18:31)
[2016-05-18] MEDS: TPN W/ FAMOTIDINE 1 EA BAG IV SCH (21:29)
[2016-05-18] MEDS: TEMAZEPAM 15 MG CAP PO PRN (23:17)
[2016-05-19] MEDS: PIPERACILLIN NA/TAZO 4.5 GM in D5W 100 ML IV SCH ×4 (00:58→22:29)
[2016-05-19] MEDS: ONDANSETRON 4 MG/2 ML VIAL IVP PRN (06:08)
[2016-05-19 06:57] LABS: ANION GAP 9 mEq/L (8-16); CALCIUM 7.6 mg/dL (8.5-10.4); CARBON DIOXIDE 23 mEq/l (22-31); CHLORIDE 102 mEq/L (97-110); CREATININE 0.5 mg/dL (0.6-1.0); GLOMERULAR FILTRATION RATE > 60; GLUCOSE 96 mg/dL (70-100); POTASSIUM 5.1 mEq/L (3.5-5.2); SODIUM 134 mEq/L (134-144)
[2016-05-19] MEDS ORDERED: TEMAZEPAM 15 MG CAP PO PRN (08:54)
[2016-05-19] MEDS: MICAFUNGIN NA 100 MG in NS 100 ML IV SCH (08:56)
[2016-05-19] MEDS: LORazepam 2 MG/ML INJ IVP PRN ×2 (09:10→17:06)
--- NOTE | 2016-05-19 09:18 | SOAPPROG ---
SOAP Progress Note Assessment/Plan: Assessment: 30yo F POD#3 s/p ex lap with washout. Serous abdominal fluid - no pus. Continue RODRIGO Clear liquids Increased pain today with gas and bowel movement, question gas pains - add ativan AXR today Tachycardia returned this am Leukocytosis - recheck tomorrow Encouraged ambulation and deep breathing/IS Appreciate ID input and management of IV antibiotics Seen with Dr. Argueta S: bowel movement and flatus this morning but dull continuous abdominal pain. one episode overnight of sweats. no fevers O: sitting upright in bed, appears uncomfortable, at bedside no increased WOB hypoactive bowel sounds, increased distension, tenderness to palpation. Incision CDI without e/o infection RODRIGO serosanguinous 05/19/16 13:38 Objective: Vital Signs Temp Pulse Resp BP Pulse Ox 37.3 C 127 H 18 102/69 95 05/19/16 07:50 05/19/16 07:50 05/19/16 07:50 05/19/16 07:50 05/19/16 07:50 Microbiology 05/16/16 17:00 Gram Stain - Final Peritoneal Fluid - Aspirate 05/11/16 21:13 Gram Stain - Final Abdomen - Tissue 05/11/16 20:59 Gram Stain - Final Abdomen - Eswab Anaerobic Culture - Final Sarah Albicans Prevotella Buccae Laboratory Results 05/18/16 08:10 05/19/16 06:10 05/18/16 05/19/16 05/20/16 05:59 05:59 05:59 Intake Total 3262 4802 Output Total 2725 1950 Balance 537 2852 PT 14.7 SEC (12.0-15.0) 05/15/16 04:45 INR 1.15 (0.83-1.16) 05/15/16 04:45 ICD10 Worksheet Patient Problems: Problems Problem Status Diagnosed Abdominal pain Acute Small bowel obstruction Acute
[2016-05-19] MEDS: ENOXAPARIN 40 MG/0.4 ML SYR SC SCH (09:32)
--- NOTE | 2016-05-19 11:32 | PCMIDPN ---
Assessment/Plan: 1. Intra-abdominal abscesses status post small bowel perforation postop day 3 after exploratory laparotomy/washout: No new recommendations at this point in time other than changing the frequency of Zosyn to 4.5 g IV q.8 hours as she does not need the anti pseudomonal dosing. This was conveyed to the patient. Continue Micafungin as is pending susceptibilities of Sarah albicans. Patient's mother is requesting a urinalysis, given increased urinary frequency, which I suspect is due to mobilization of fluid. This was ordered. Will also repeat CBC today. Patient will have a KUB at some point today. Subjective: Patient feels slightly worse today, with increase abdominal pain/gas. No nausea or vomiting. No shaking chills. Objective: T-max 37.3degrees Zosyn 4.5 g IV q.6 hours day 4 Micafungin 100 mg IV daily day 4 Vital Signs Temp Pulse Resp BP Pulse Ox 37.3 C 119 H 20 102/69 96 05/19/16 07:50 05/19/16 10:16 05/19/16 10:16 05/19/16 07:50 05/19/16 10:16 Microbiology 05/16/16 17:00 Gram Stain - Final Peritoneal Fluid - Aspirate 05/11/16 21:13 Gram Stain - Final Abdomen - Tissue 05/11/16 20:59 Gram Stain - Final Abdomen - Eswab Anaerobic Culture - Final Sarah Albicans Prevotella Buccae Laboratory Results 05/18/16 08:10 05/19/16 06:10 05/18/16 05/19/16 05/20/16 05:59 05:59 05:59 Intake Total 3262 4802 Output Total 2725 1950 Balance 537 2852 Perineal cultures have grown Gram-positive cocci, Sarah albicans, prevotella, lactobacillus - Physical Exam General Appearance: alert, thin, other (Looks mildly uncomfortable, but nontoxic.) EENT: pale conjunctiva Respiratory: lungs clear Cardiac/Chest: tachycardia Extremities: other (PICC line right upper extremity looks fine.) Abdomen: other (Slightly distended. Hypoactive bowel sounds. Incision clean and dry with aury in place and no discharge. RODRIGO drain is empty.) Skin: No rash ICD10 Worksheet Patient Problems: Problems Problem Status Diagnosed Abdominal pain Acute Small bowel obstruction Acute
[2016-05-19 11:50] LABS: ABSOLUTE NRBC COUNT 0.02 10^3/uL (0-0.01); ADD DIFF? YES; ADD MORPH? NO; FRAGMENT RBC FLAG 20 (0-99); HEMATOCRIT 29.7 % (38.0-47.0); HEMOGLOBIN 9.6 g/dL (12.6-16.3); LEFT SHIFT FLG 20 (0-99); LIPEMIA HEMOLYSIS FLAG 80 (0-99); MEAN CELL HEMOGLOBIN 26.4 pg (27.9-34.1); MEAN CELL HEMOGLOBIN CONCENTR. 32.3 g/dL (32.4-36.7); MEAN CELL VOLUME 81.6 fL (81.5-99.8); MEAN PLATELET VOLUME 9.9 fL (8.7-11.7); NRBC-AUTO% 0.1 % (0.0-0.2); PLATELET CLUMPS FLAG 0 (0-99); PLATELET COUNT 650 10^3/uL (150-400); RED BLOOD CELL COUNT 3.64 10^6/uL (4.18-5.33); RED CELL DISTRIBUTION WIDTH 18.6 % (11.5-15.2)
[2016-05-19 11:52] LABS: ADD SCAN? NO; ATYPICAL LYMPHOCYTE FLAG 100 (0-99)
[2016-05-19 12:06] LABS: COLOR YELLOW; LEUKOCYTE ESTERASE,URINE NEGATIVE (NEGATIVE); NITRITE,URINE NEGATIVE (NEGATIVE)
[2016-05-19 12:47] LABS: HYPOCHROMIA 1+; MICROCYTES 1+; PLATELET ESTIMATE INCREASED (ADEQ); POLYCHROMASIA 2+
[2016-05-19 12:48] LABS: LARGE PLATELETS PRESENT; STOMATOCYTES 1+
--- NOTE | 2016-05-19 13:44 | DX ---
Abdomen, Two Views. HISTORY: Increased distention. Status post bowel resection and washout. COMPARISON: CT May 15, 2016. FINDINGS: Postsurgical changes are seen with surgical clips in the right mid abdomen and skin aury in the midline. A single large-bore drain is seen with its tip in the right pelvis. Nonobstructive b owel gas pattern. A few bubbles of air are seen in the right upper abdomen of uncertain location. No other findings for significant free intraperitoneal air. IMPRESSION: Nonobstructive bowel gas pattern with postoperative change as above.
[2016-05-19] MEDS: NS 1,000 ML IV SCH (14:08)
[2016-05-19] MEDS: HYDROmorphONE/DILAUDID 6 MG/30 ML PCA IV PRN (17:39)
[2016-05-19] MEDS: TPN W/ FAMOTIDINE 1 EA BAG IV SCH (21:09)
[2016-05-19] MEDS ORDERED: CYCLOBENZAPRINE 10 MG TAB PO SCH (22:00)
[2016-05-20] MEDS: LORazepam 2 MG/ML INJ IVP PRN (03:58)
[2016-05-20 04:59] LABS: ADD DIFF? YES; ADD MORPH? NO; FRAGMENT RBC FLAG 30 (0-99); HEMATOCRIT 26.5 % (38.0-47.0); HEMOGLOBIN 8.6 g/dL (12.6-16.3); LEFT SHIFT FLG 50 (0-99); LIPEMIA HEMOLYSIS FLAG 80 (0-99); MEAN CELL HEMOGLOBIN 26.9 pg (27.9-34.1); MEAN CELL HEMOGLOBIN CONCENTR. 32.5 g/dL (32.4-36.7); MEAN CELL VOLUME 82.8 fL (81.5-99.8); MEAN PLATELET VOLUME 10.2 fL (8.7-11.7); PLATELET CLUMPS FLAG 10 (0-99); PLATELET COUNT 609 10^3/uL (150-400); RED CELL DISTRIBUTION WIDTH 18.6 % (11.5-15.2)
[2016-05-20 05:04] LABS: ADD SCAN? NO; ATYPICAL LYMPHOCYTE FLAG 110 (0-99)
[2016-05-20] MEDS: PIPERACILLIN NA/TAZO 4.5 GM in D5W 100 ML IV SCH ×3 (05:55→22:05)
[2016-05-20 06:38] LABS: GIANT PLATELETS PRESENT; LARGE PLATELETS PRESENT; PLATELET ESTIMATE INCREASED (ADEQ); TOXIC GRANULATION PRESENT; TOXIC VACUOLIZATION PRESENT
[2016-05-20 06:40] LABS: HYPOCHROMIA 1+; MICROCYTES 1+; POLYCHROMASIA 1+; STOMATOCYTES 1+
[2016-05-20] MEDS: CYCLOBENZAPRINE 10 MG TAB PO SCH ×4 (07:40→23:23)
[2016-05-20] MEDS: MICAFUNGIN NA 100 MG in NS 100 ML IV SCH (08:29)
[2016-05-20] MEDS: ENOXAPARIN 40 MG/0.4 ML SYR SC SCH (08:29)
--- NOTE | 2016-05-20 14:36 | PCMIDPN ---
Assessment/Plan: Assessment/Plan: * Intraabdominal abscesses s/p small bowel perforation and incision and drainage : Has persistent leukocytosis, tachycardia and abdominal pain concerning for possible residual intra-abdominal abscess. Will obtain CT scan abdomen and pelvis to assess for any undrained collections. Most recent operative cultures with Sarah albicans and lactobacillus. Initial Sarah albicans isolate is azole susceptible. Will change micafungin to fluconazole based on this finding and continue Zosyn. 05/20/16 14:33 Subjective: Patient with some abdominal and back pain. Nausea present. Objective: Vital Signs Temp Pulse Resp BP Pulse Ox 37.0 C 117 H 14 102/71 95 05/20/16 14:00 05/20/16 14:00 05/20/16 14:00 05/20/16 14:00 05/20/16 14:00 Microbiology 05/11/16 21:13 Gram Stain - Final Abdomen - Tissue 05/16/16 17:00 Gram Stain - Final Peritoneal Fluid - Aspirate Laboratory Results 05/20/16 04:20 05/19/16 06:10 05/19/16 05/20/16 05/21/16 05:59 05:59 05:59 Intake Total 4802 3279 200 Output Total 1950 2345 1000 Balance 2852 934 -800 Zosyn # 5 Micafungin # 5 Sarah albicans azole susceptible - Physical Exam General Appearance: alert, apparent distress (Mild due to discomfort), non-toxic EENT: pharynx normal, No scleral icterus Respiratory: lungs clear (Anterolaterally), No respiratory distress Cardiac/Chest: tachycardia, No systolic murmur Abdomen: tender (Diffusely with serosanguineous) Skin: No rash - Line/s RUE PICC Lines: No drainage, No erythema ICD10 Worksheet Patient Problems: Problems Problem Status Diagnosed Abdominal pain Acute Small bowel obstruction Acute
--- NOTE | 2016-05-20 16:19 | SOAPPROG ---
SOAP Progress Note Assessment/Plan: Assessment: 30 FEMALE WITH SLOW PROGRESS AFTER SB RESECTION FOR PERFORATION MORE UNCOMFORTABLE AND TACHY TODAY WITH WBC 22K ABD SOFT BUT MILDLY DISTENDED, +BS/ AFEBRILE RISKS AND OPTIONS FULLY DISCUSSED Plan: FU ABD CT SCAN 05/20/16 16:16 Objective: Vital Signs Temp Pulse Resp BP Pulse Ox 37.0 C 117 H 14 102/71 95 05/20/16 14:00 05/20/16 14:00 05/20/16 14:00 05/20/16 14:00 05/20/16 14:00 Microbiology 05/16/16 17:00 Gram Stain - Final Peritoneal Fluid - Aspirate 05/11/16 21:13 Gram Stain - Final Abdomen - Tissue Laboratory Results 05/20/16 04:20 05/19/16 06:10 05/19/16 05/20/16 05/21/16 05:59 05:59 05:59 Intake Total 4802 3279 200 Output Total 1950 2345 1000 Balance 2852 934 -800 PT 14.7 SEC (12.0-15.0) 05/15/16 04:45 INR 1.15 (0.83-1.16) 05/15/16 04:45 ICD10 Worksheet Patient Problems: Problems Problem Status Diagnosed Abdominal pain Acute Small bowel obstruction Acute
[2016-05-20] MEDS ORDERED: IOPAMIDOL (ISOVUE-300) 100 ML BTL IV ONE (16:59)
--- NOTE | 2016-05-20 17:58 | CT ---
CT Scan of the Abdomen and Pelvis (With Contrast) Clinical Indications: Follow-up abdominal perforation and multiple abscesses. Technique: 85 mL of Isovue 300 were given intravenously by machine power injection. Multidetector he lical CT imaging was performed from the diaphragm to the symphysis pubis. Dose reduction techniques w ere utilized. Comparison Examination: May 15, 2016. Findings: There is focal atelectasis of both lower lobes. Liver and spleen enhance normally. Kidneys enhance symmetrically. Pancreas is normal in appearance. There has been slight decrease in peritoneal ascites throughout the abdomen and pelvis from previous study. A 3.3-cm interloop abscess in the left lower abdomen has decreased slightly in size from previ ous examination, measuring 3.8 cm on prior examination. Residual oral contrast is present throughout distal small bowel and colonic loops. No significant small bowel distention is identified to suggest obstructive features. Within the pelvis, there is a persistent 5.6 cm fluid collection within the anterior pelvis, compatib le with a confined peritoneal pocket of fluid. A drainage catheter extends from the left lower quadra nt through the pelvis into the right lower quadrant. Impression: Overall interval decrease in peritoneal fluid from previous study. A persistent 3.3-cm i nterloop abscess is present in the left lower quadrant, along with a persistent focal 5.6 cm fluid co llection in the anterior pelvis.
[2016-05-20] MEDS: TPN W/ FAMOTIDINE 1 EA BAG IV SCH (21:56)
[2016-05-20] MEDS: ONDANSETRON 4 MG/2 ML VIAL IVP PRN (23:27)
[2016-05-21] MEDS: PIPERACILLIN NA/TAZO 4.5 GM in D5W 100 ML IV SCH ×3 (05:34→21:06)
[2016-05-21] MEDS: CYCLOBENZAPRINE 10 MG TAB PO SCH ×3 (05:35→21:46)
[2016-05-21] MEDS: NS 1,000 ML IV SCH (05:37)
[2016-05-21 05:59] LABS: ABSOLUTE NRBC COUNT 0.02 10^3/uL (0-0.01); ADD DIFF? YES; ADD MORPH? NO; ADD SCAN? NO; ATYPICAL LYMPHOCYTE FLAG 50 (0-99); FRAGMENT RBC FLAG 20 (0-99); HEMOGLOBIN 8.6 g/dL (12.6-16.3); LEFT SHIFT FLG 30 (0-99); LIPEMIA HEMOLYSIS FLAG 80 (0-99); MEAN CELL HEMOGLOBIN 26.6 pg (27.9-34.1); MEAN CELL HEMOGLOBIN CONCENTR. 31.9 g/dL (32.4-36.7); MEAN CELL VOLUME 83.6 fL (81.5-99.8); MEAN PLATELET VOLUME 9.9 fL (8.7-11.7); NRBC-AUTO% 0.1 % (0.0-0.2); PLATELET CLUMPS FLAG 10 (0-99); PLATELET COUNT 686 10^3/uL (150-400); RED BLOOD CELL COUNT 3.23 10^6/uL (4.18-5.33); RED CELL DISTRIBUTION WIDTH 18.6 % (11.5-15.2)
[2016-05-21] MEDS: ONDANSETRON 4 MG/2 ML VIAL IVP PRN ×2 (06:03→21:12)
[2016-05-21 06:38] LABS: GIANT PLATELETS PRESENT; HYPOCHROMIA 1+; PLATELET ESTIMATE INCREASED (ADEQ); POLYCHROMASIA 1+; STOMATOCYTES 1+
[2016-05-21] MEDS: FLUCONAZOLE/NaCl 200 ML IV SCH (09:34)
[2016-05-21] MEDS: ENOXAPARIN 40 MG/0.4 ML SYR SC SCH (09:42)
--- NOTE | 2016-05-21 11:02 | PCMIDPN ---
Assessment/Plan: Assessment/Plan: * Intraabdominal abscesses s/p small bowel perforation and incision and drainage : No further fever with decreased WBC today. CT shows fluid collection in pelvis which is amenable to percutaneous drainage. Other small collections present which are not amenable to percutaneous drainage. Plans for CT guided drainage of collection today - CT scanner currently down so will be assessed by US to see if can be drained via US guidance. Continue Zosyn and fluconazole. Repeat cultures at time of drainage. 05/21/16 10:59 Subjective: Feels better today with less abdominal discomfort. Objective: Vital Signs Temp Pulse Resp BP Pulse Ox 36.7 C 110 H 16 104/64 95 05/21/16 09:38 05/21/16 09:38 05/21/16 09:38 05/21/16 09:38 05/21/16 09:38 Microbiology 05/16/16 17:00 Gram Stain - Final Peritoneal Fluid - Aspirate 05/11/16 21:13 Gram Stain - Final Abdomen - Tissue Laboratory Results 05/21/16 05:43 05/19/16 06:10 05/20/16 05/21/16 05/22/16 05:59 05:59 05:59 Intake Total 3279 4988 Output Total 2345 2608 Balance 934 2380 Zosyn #6 Fluconazole #1 (antifungal #6) CT with overall decrease in peritoneal fluid; residual 3.3 interloop abscess present; 5.6 cm fluid collection anterior pelvis - Physical Exam General Appearance: alert, no apparent distress EENT: pharynx normal, No scleral icterus Respiratory: lungs clear, No respiratory distress Cardiac/Chest: tachycardia Extremities: No inflammation Abdomen: non-tender, distended (mild), other (RODRIGO with small amount of serous output; small amount of serosanguinous drainage along lower incision with intact incision line) ICD10 Worksheet Patient Problems: Problems Problem Status Diagnosed Abdominal pain Acute Small bowel obstruction Acute
--- NOTE | 2016-05-21 12:34 | US ---
LIMITED LEFT LOWER QUADRANT ULTRASOUND INDICATION: Evaluate whether the left lower quadrant fluid collection is visible or assessable by ult rasound guidance for drain placement. COMPARISON: CT scan dated May 20, 2016. TECHNIQUE: Limited left lower quadrant ultrasound is performed. FINDINGS: 2.5 cm from the skin is a complex fluid collection with multiple septations. I am unclear w hether this fluid collection represents the same as what is intended on CT scan for drain placement. Nonetheless, if this smaller fluid collection can be seen, I think the larger fluid collection in the left lower quadrant most likely will be seen. That fluid collection is just over the bladder on top of the uterus as well. IMPRESSION: The fluid collection in the left lower quadrant would most likely be accessible for ultra sound-guided drain placement.
--- NOTE | 2016-05-21 13:23 | SOAPPROG ---
SOAP Progress Note Assessment/Plan: Assessment: 30 FEMALE WITH SLOW PROGRESS AFTER SB RESECTION FOR PERFORATION MORE UNCOMFORTABLE AND TACHY TODAY WITH WBC 22K ABD SOFT BUT MILDLY DISTENDED, +BS/ AFEBRILE RISKS AND OPTIONS FULLY DISCUSSED Plan: FU ABD CT SCAN 05/20/16 16:16 05/21/16 13:21 AFEBRILE/ MORE COMFORTABLE/ WOUND OK/ ABD SOFT/ UO GOOD/ ACTIVE BMS AND FLATUS / CT SHOWS PELVIC COLLECTION AMENABLE TO PERC DRAINAGE, ALSO SMALLER INTERLOOP COLLECTION Objective: Vital Signs Temp Pulse Resp BP Pulse Ox 37.0 C 106 H 18 117/68 97 05/21/16 11:56 05/21/16 11:56 05/21/16 11:56 05/21/16 11:56 05/21/16 11:56 Microbiology 05/11/16 21:13 Gram Stain - Final Abdomen - Tissue Anaerobic Culture - Final Sarah Albicans Prevotella Buccae 05/16/16 17:00 Gram Stain - Final Peritoneal Fluid - Aspirate Laboratory Results 05/21/16 05:43 05/19/16 06:10 05/20/16 05/21/16 05/22/16 05:59 05:59 05:59 Intake Total 3279 4988 Output Total 2345 2608 Balance 934 2380 PT 14.7 SEC (12.0-15.0) 05/15/16 04:45 INR 1.15 (0.83-1.16) 05/15/16 04:45 ICD10 Worksheet Patient Problems: Problems Problem Status Diagnosed Abdominal pain Acute Small bowel obstruction Acute
[2016-05-21] MEDS ORDERED: fentaNYL 100 MCG/2 ML INJ ONE ×2 (13:56→14:40)
[2016-05-21] MEDS ORDERED: MIDAZOLAM 2 MG/2 ML VIAL ONE ×2 (13:56→14:40)
[2016-05-21] MEDS ORDERED: IOPAMIDOL (ISOVUE-300) 100 ML BTL IV ONE (15:19)
--- NOTE | 2016-05-21 16:41 | IR ---
Ultrasound and Fluoroscopy Guided Left Lower Quadrant Abscess Drain Placement Indication: Left lower fluid collection. Surgical RODRIGO drain in place. Percutaneous drainage of this pe rsistent left lower quadrant collection requested. GE CT scanner is down this morning and limited abd ominal ultrasound shows that this fluid collection is amenable to ultrasound-guided drain placement. Informed Consent: Obtained from the patient. Risks and benefits were discussed. Crosscutting Measure: Patient's current list of medications including all known prescriptions, over- the-counters, herbals, and vitamin/mineral/dietary supplements are reviewed. Medications' name, dosa ge, frequency, and route of administration are confirmed. The patient is a non-smoker. Prophylactic Antibiotic: Cefazolin was not ordered and administered for antimicrobial prophylaxis be cause it was not medically necessary. VTE Prophylaxis: There is not an order for VTE prophylaxis to be given within 24 hours of the proced ure end time. VTE prophylaxis was not given because it was not medically necessary. Technique: Patient is placed in supine position. A "timeout" procedure was performed to identify th e correct patient and the correct procedure. 1% Xylocaine was used for local anesthetic. All eleme nts of maximal sterile barrier technique including cap, mask, sterile gown, sterile gloves, large kady rile sheet, hand hygiene, and 2% chlorhexidine for cutaneous antisepsis followed. Ultrasound evaluation of potential access site was performed. A permanent recording was created for t he patient's record. When ultrasound is used, sterile gel and probe covers are used. Ultrasound interrogation of the left lower quadrant is performed. At the midline, slightly towards th e left, a fluid collection is identified just above an otherwise partially filled bladder. This corre lates exactly to the fluid collection seen on CT scan. After local anesthetics, an 18-gauge single wall needle is inserted into this fluid collection, immed iately aspirating translucent yellowish fluid. Amplatz wire is advanced under fluoroscopic guidance i nto the left lower quadrant. After tract dilatation, a 10-Kyrgyz pigtail catheter is advanced. A total of 40 mL of slightly serosanguinous to yellow-brown fluid were aspirated. It did not look pur ulent. The drain is attached to RODRIGO bulb. The patient tolerated the procedure well. Medication: 4 mg Zofran, 150 mcg fentanyl, 2 mg Versed, 1430 - 1501. Fluoroscopy: 0.7 minutes, 4 images. Impressions: 1. Ultrasound and fluoroscopy guided left lower quadrant abscess drain placement, 10-Kyrgyz. 2. 40 mL of translucent yellow to dark brown fluid aspirated and sent for requested labs. This fluid did not look purulent. 3. Noncontrasted CT scan for evaluation of drain placement after PACU recovery, prior to returning to patient's room today.
[2016-05-21] MEDS: TPN W/ FAMOTIDINE 1 EA BAG IV SCH (21:06)
[2016-05-21] MEDS ORDERED: HYDROmorphONE/DILAUDID 6 MG/30 ML PCA IV PRN (22:30)
[2016-05-22] MEDS: ONDANSETRON 4 MG/2 ML VIAL IVP PRN ×2 (04:53→21:47)
[2016-05-22 04:56] LABS: ABSOLUTE NRBC COUNT 0.02 10^3/uL (0-0.01); ADD DIFF? YES; ADD MORPH? NO; ADD SCAN? NO; ATYPICAL LYMPHOCYTE FLAG 80 (0-99); FRAGMENT RBC FLAG 20 (0-99); HEMATOCRIT 25.4 % (38.0-47.0); HEMOGLOBIN 8.1 g/dL (12.6-16.3); LEFT SHIFT FLG 30 (0-99); LIPEMIA HEMOLYSIS FLAG 80 (0-99); MEAN CELL HEMOGLOBIN 26.6 pg (27.9-34.1); MEAN CELL HEMOGLOBIN CONCENTR. 31.9 g/dL (32.4-36.7); MEAN CELL VOLUME 83.3 fL (81.5-99.8); MEAN PLATELET VOLUME 9.8 fL (8.7-11.7); NRBC-AUTO% 0.2 % (0.0-0.2); PLATELET CLUMPS FLAG 0 (0-99); PLATELET COUNT 707 10^3/uL (150-400); RED BLOOD CELL COUNT 3.05 10^6/uL (4.18-5.33); RED CELL DISTRIBUTION WIDTH 18.6 % (11.5-15.2)
[2016-05-22] MEDS: PIPERACILLIN NA/TAZO 4.5 GM in D5W 100 ML IV SCH ×3 (05:02→21:44)
[2016-05-22] MEDS: CYCLOBENZAPRINE 10 MG TAB PO SCH ×3 (05:03→21:55)
[2016-05-22 05:09] LABS: INR 1.14 (0.83-1.16); PROTIME(PATIENT) 14.5 SEC (12.0-15.0)
[2016-05-22 05:15] LABS: ALANINE AMINOTRANSFERASE 37 IU/L (9-52); ALBUMIN 2.6 g/dL (3.5-5.0); ALKALINE PHOSPHATASE 117 IU/L (38-126); ANION GAP 10 mEq/L (8-16); ASPARTATE AMINOTRANSFERASE 19 IU/L (14-46); BILIRUBIN,TOTAL 1.1 mg/dL (0.1-1.4); CALCIUM 7.8 mg/dL (8.5-10.4); CARBON DIOXIDE 22 mEq/l (22-31); CHLORIDE 103 mEq/L (97-110); CREATININE 0.5 mg/dL (0.6-1.0); GLOMERULAR FILTRATION RATE > 60; GLUCOSE 100 mg/dL (70-100); MAGNESIUM 2.1 mg/dL (1.6-2.3); POTASSIUM 4.8 mEq/L (3.5-5.2); SODIUM 135 mEq/L (134-144); TOTAL PROTEIN 6.7 g/dL (6.3-8.2); TRIGLYCERIDE 177 mg/dL (35-135)
[2016-05-22 05:33] LABS: HYPOCHROMIA 1+; POLYCHROMASIA 1+
[2016-05-22 05:34] LABS: PLATELET ESTIMATE INCREASED (ADEQ); STOMATOCYTES 1+
[2016-05-22] MEDS: NS 1,000 ML IV SCH (06:14)
[2016-05-22] MEDS: FLUCONAZOLE/NaCl 200 ML IV SCH (08:15)
[2016-05-22] MEDS: ENOXAPARIN 40 MG/0.4 ML SYR SC SCH (08:53)
--- NOTE | 2016-05-22 09:44 | PCMIDPN ---
Assessment/Plan: Assessment/Plan: * Intraabdominal abscesses s/p small bowel perforation and incision and drainage : Percutaneous drainage of pelvic fluid collection yesterday with culture showing no growth to date. White blood cell decreased to 12.9 today with less prominent tachycardia. Continue Zosyn and fluconazole. Follow-up cultures from pelvic fluid collection. * Thrombocytosis: Likely reactive related to acute inflammatory process. 05/22/16 09:40 Subjective: Patient with lower abdominal pain and sharp shooting pain in back similar to that she experienced yesterday. Objective: Vital Signs Temp Pulse Resp BP Pulse Ox 36.6 C 96 16 112/66 94 05/22/16 07:44 05/22/16 07:44 05/22/16 07:44 05/22/16 07:44 05/22/16 07:44 Microbiology 05/21/16 10:18 Gram Stain - Final Abdomen - Aspirate 05/16/16 17:00 Gram Stain - Final Peritoneal Fluid - Aspirate 05/11/16 21:13 Gram Stain - Final Abdomen - Tissue Anaerobic Culture - Final Sarah Albicans Prevotella Buccae Laboratory Results 05/22/16 04:41 05/22/16 04:41 05/21/16 05/22/16 05/23/16 05:59 05:59 05:59 Intake Total 4988 3528 Output Total 2608 880 Balance 2380 2648 Tm 37.8 Zosyn # 7 (antibiotic # 12) Fluconazole # 2 (anti fungal # 10) Pelvic fluid collection Gram stain negative with 1+ white blood cells, culture no growth to date - Physical Exam General Appearance: alert, no apparent distress EENT: pharynx normal, No scleral icterus Respiratory: lungs clear, No respiratory distress Cardiac/Chest: regular rate, rhythm Extremities: No pedal edema Abdomen: tender (Diffusely), other (Clear yellow fluid in left-sided RODRIGO drain; aury intact without expressible drainage from incision), No distended Skin: No rash - Line/s RUE PICC Lines: No drainage, No erythema ICD10 Worksheet Patient Problems: Problems Problem Status Diagnosed Abdominal pain Acute Small bowel obstruction Acute
--- NOTE | 2016-05-22 15:32 | CT ---
CT pelvis without contrast INDICATION: Evaluate drain placement, which was done under ultrasound guidance. TECHNIQUE: 5-mm thin axial images were performed from the iliac crest through the pubic symphysis wit hout intravenous contrast. Coronal and parasagittal reformatted images were reviewed on the workstati on. FINDINGS: Left lower quadrant pigtail catheter enters just posterior to the inferior epigastric vesse l complex. This was fairly close. There has been already near complete evacuation of the intended flu id collection. The surgically placed RODRIGO drain is otherwise unchanged in position. IMPRESSION: 1. Left lower quadrant pigtail catheter escapes the inferior epigastric vessel complex extremely clos migdalia. Catheter removal is recommended with wire straightening out the pigtail first. 2. Near complete evacuation already of the intended fluid collection.
[2016-05-22] MEDS: TPN W/ FAMOTIDINE 1 EA BAG IV SCH (21:42)
[2016-05-23] MEDS: CYCLOBENZAPRINE 10 MG TAB PO SCH ×3 (04:39→22:04)
[2016-05-23] MEDS: NS 1,000 ML IV SCH (04:41)
[2016-05-23] MEDS: ONDANSETRON 4 MG/2 ML VIAL IVP PRN (04:50)
[2016-05-23] MEDS: PIPERACILLIN NA/TAZO 4.5 GM in D5W 100 ML IV SCH ×5 (04:54→21:55)
--- NOTE | 2016-05-23 05:03 | SOAPPROG ---
SOAP Progress Note Assessment/Plan: Assessment: note for visit 05/22/16 30yo female s/p multiple abdominal surgeries, recent IR drainage of pelvic abscess. 05/08/16 diagnostic lap, lysis of adhesions, repair of internal hernia 05/11/16 expl laparotomy, small bowel resection 05/16/16 expl laparotomy and washout 05/21/16 abscess drainage of pelvic fluid, 40ml, nonpurulent fluid, culture pending Tolerating clears, passing small amount of gas, pain controlled on COMB SETTER. on dilaudid COMB SETTER, flexeril for pain PE afebrile awake alert comfortable Chest CTA B/L Abdomen midline incision clean and dry, Left RODRIGO drain in place with small amount of serous fluid, nondistended, soft WBC 12.9 Plan: advance to soft diet encouraged ambulation consider aspirin for thrombocytosis, will discuss with Dr Tinajero 05/22/16 Objective: Vital Signs Temp Pulse Resp BP Pulse Ox 36.4 C 97 14 94/82 H 94 05/23/16 04:00 05/23/16 04:00 05/23/16 04:00 05/23/16 04:00 05/23/16 04:00 Microbiology 05/16/16 17:00 Gram Stain - Final Peritoneal Fluid - Aspirate 05/21/16 10:18 Gram Stain - Final Abdomen - Aspirate Laboratory Results 05/22/16 04:41 05/22/16 04:41 05/21/16 05/22/16 05/23/16 05:59 05:59 05:59 Intake Total 4988 3528 3389 Output Total 2608 880 1920 Balance 2380 2648 1469 PT 14.5 SEC (12.0-15.0) 05/22/16 04:41 INR 1.14 (0.83-1.16) 05/22/16 04:41 ICD10 Worksheet Patient Problems: Problems Problem Status Diagnosed Abdominal pain Acute Small bowel obstruction Acute
[2016-05-23] MEDS ORDERED: HYDROCODONE/APAP 5/325 TAB PO PRN ×2 (08:18→13:20)
[2016-05-23] MEDS ORDERED: OXYCODONE/APAP 5/325 TAB PO PRN (08:20)
[2016-05-23] MEDS: FLUCONAZOLE/NaCl 200 ML IV SCH (08:29)
[2016-05-23] MEDS ORDERED: traMADol 50 MG TAB PO PRN (13:20)
--- NOTE | 2016-05-23 14:03 | PCMIDPN ---
Assessment/Plan: Assessment/Plan: 1. intraabdominal abscesses: s/p I & d - s/p recent percutaneous drainage with improvment -cx with lactobacillus, prevotella, c . albicans. - currenlty on zosyn and fluconazole. -Given no pseudomonas or enterococcus isolated on any of hte cx could consider changing back to invanz + fluconazole to complete course of antibiotics therapy for above. This will be easier for OP regimen -Discussed with patient, regarding the missed dose this Am and if they had concerns regarding that. I reassured them. They did not have any further concerns. -Care coordinated with rn. med zosyn fluconazole Subjective: afebrile. pt feels better overall with respect to her abdomen. she is c/o left sided back pain which is worse with deep breathing. Denies sob, cough. intermittent nausea. loose stools. at bedside. Objective: Vital Signs Temp Pulse Resp BP Pulse Ox 36.8 C 98 16 114/74 96 05/23/16 11:33 05/23/16 11:33 05/23/16 11:33 05/23/16 11:33 05/23/16 11:33 Microbiology 05/21/16 10:18 Gram Stain - Final Abdomen - Aspirate 05/16/16 17:00 Gram Stain - Final Peritoneal Fluid - Aspirate Anaerobic Culture - Final Sarah Albicans Lactobacillus Species Laboratory Results 05/22/16 04:41 05/22/16 04:41 05/22/16 05/23/16 05/24/16 05:59 05:59 05:59 Intake Total 3528 3389 Output Total 880 1920 Balance 2648 1469 - Physical Exam General Appearance: alert, no apparent distress Respiratory: other (poor inspiratory effort with mild course bs at bases brennen) Cardiac/Chest: tachycardia Extremities: No swelling Abdomen: normal bowel sounds, soft, distended (mild), tender, other (midline aury without drainage. two RODRIGO drains one with minimal serous drainage, the other with minimal serosanguinous drainage. ) Skin: No erythema ICD10 Worksheet Patient Problems: Problems Problem Status Diagnosed Abdominal pain Acute Small bowel obstruction Acute
[2016-05-23] MEDS: IBUPROFEN 800 MG TAB PO SCH ×2 (14:17→21:55)
[2016-05-23] MEDS: ENOXAPARIN 40 MG/0.4 ML SYR SC SCH (14:18)
[2016-05-23] MEDS ORDERED: HYDROmorphONE/DILAUDID 1 MG/ML SYR IVP PRN (16:48)
--- NOTE | 2016-05-23 16:55 | SOAPPROG ---
SOAP Progress Note Assessment/Plan: Assessment: 30yo F s/p ex lap with washout. Serous abdominal fluid - no pus. May remove R abdominal RODRIGO today Regular diet Pain control - transition to PO. Flexeril/Ativan for back pain Tachycardia stable Leukocytosis - improving, recheck labs tomorrow Encouraged ambulation and deep breathing/IS Lovenox/SCDs DVT ppx - patient refusing Appreciate ID input and management of IV antibiotics Seen with Dr. Argueta S: +flatus and BMs. Tolerated light diet yesterday. Back pain when laying in bed for extended periods of time O: laying in bed, appears uncomfortable, at bedside CTAB but decreased R base RRR +BS, soft, distended, nontender. Incision clean and dry, draining serous fluid from inferior aspect. JPs with serosanguinous output Objective: Vital Signs Temp Pulse Resp BP Pulse Ox 36.4 C 92 18 123/70 H 98 05/23/16 16:00 05/23/16 16:00 05/23/16 16:00 05/23/16 16:00 05/23/16 16:00 Microbiology 05/21/16 10:18 Gram Stain - Final Abdomen - Aspirate 05/16/16 17:00 Gram Stain - Final Peritoneal Fluid - Aspirate Anaerobic Culture - Final Sarah Albicans Lactobacillus Species Laboratory Results 05/22/16 04:41 05/22/16 04:41 05/22/16 05/23/16 05/24/16 05:59 05:59 05:59 Intake Total 3528 3389 Output Total 880 1920 Balance 2648 1469 PT 14.5 SEC (12.0-15.0) 05/22/16 04:41 INR 1.14 (0.83-1.16) 05/22/16 04:41 ICD10 Worksheet Patient Problems: Problems Problem Status Diagnosed Abdominal pain Acute Small bowel obstruction Acute
[2016-05-24] MEDS: IBUPROFEN 800 MG TAB PO SCH ×2 (05:30→13:50)
[2016-05-24] MEDS: PIPERACILLIN NA/TAZO 4.5 GM in D5W 100 ML IV SCH ×2 (05:30→13:42)
[2016-05-24 05:43] LABS: % IMMATURE GRANULYOCYTES 1.9 % (0.0-1.1); ABSOLUTE IMMATURE GRANULOCYTES 0.18 10^3/uL (0.00-0.10); ADD DIFF? NO; ADD MORPH? NO; ADD SCAN? NO; ATYPICAL LYMPHOCYTE FLAG 60 (0-99); FRAGMENT RBC FLAG 20 (0-99); HEMATOCRIT 26.4 % (38.0-47.0); HEMOGLOBIN 8.1 g/dL (12.6-16.3); LEFT SHIFT FLG 10 (0-99); LIPEMIA HEMOLYSIS FLAG 80 (0-99); MEAN CELL HEMOGLOBIN 25.8 pg (27.9-34.1); MEAN CELL HEMOGLOBIN CONCENTR. 30.7 g/dL (32.4-36.7); MEAN CELL VOLUME 84.1 fL (81.5-99.8); MEAN PLATELET VOLUME 9.7 fL (8.7-11.7); PLATELET CLUMPS FLAG 10 (0-99); PLATELET COUNT 747 10^3/uL (150-400); RED BLOOD CELL COUNT 3.14 10^6/uL (4.18-5.33); RED CELL DISTRIBUTION WIDTH 18.2 % (11.5-15.2)
[2016-05-24] MEDS: CYCLOBENZAPRINE 10 MG TAB PO SCH ×2 (05:44→11:54)
[2016-05-24] MEDS: ENOXAPARIN 40 MG/0.4 ML SYR SC SCH (08:54)
[2016-05-24] MEDS: FLUCONAZOLE/NaCl 200 ML IV SCH (08:55)
--- NOTE | 2016-05-24 09:53 | PDIAF ---
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 PICC Care - Routine: Yes - Orders Services needed: Home Custodial Care Face to Face: I certify that this patient was under my care and that I had the required [id number] encounter meeting the encounter requirements on the discharge day. My findings support the fact that the patient is homebound as defined in CMS Chapter 7 Medicare Benefits Manual 30.1.1, The condition of the patient is such that there exists a normal inability to leave home and consequently, leaving home would require a considerable and taxing effort. - Labs/Radiology CBC Date: 05/29/16 (Weekly Q Sunday) CMP Date: 05/29/16 (Weekly Q Sunday) Call or Fax Lab and Imaging Results to: Dr. Van, - Follow Up Care Current Providers and Referrals: Patient,NotPresent [Unknown] - As per Instructions Hermann Van MD [Medical Doctor] - 06/01/16 2:00 pm
--- NOTE | 2016-05-24 10:10 | PCMIDPN ---
Assessment/Plan: Assessment/Plan: * Intraabdominal abscesses s/p small bowel perforation and incision and drainage : Pelvic fluid collection culture negative with plans for drain removal today. Heart rate normalized and white blood cell count also normal. Clinically has improved significantly over last 48 hours. Will plan to continue Zosyn for 2 weeks post percutaneous drainage. Continue fluconazole for same duration but transition to p.o.. Plan to use Zosyn 13.5 g IV Q 24 hours by continuous infusion as outpatient. Case management to assess for outpatient IV antibiotics. Patient will follow-up with me in the office next week. * Thrombocytosis: Likely reactive related to acute inflammatory process. 05/24/16 10:07 Subjective: Patient feels much better. Less abdominal pain. Objective: Vital Signs Temp Pulse Resp BP Pulse Ox 36.3 C 78 20 101/62 95 05/24/16 08:36 05/24/16 08:36 05/24/16 08:36 05/24/16 08:36 05/24/16 08:36 Microbiology 05/21/16 10:18 Gram Stain - Final Abdomen - Aspirate 05/16/16 17:00 Gram Stain - Final Peritoneal Fluid - Aspirate Anaerobic Culture - Final Sarah Albicans Lactobacillus Species Laboratory Results 05/24/16 05:25 05/22/16 04:41 05/23/16 05/24/16 05/25/16 05:59 05:59 05:59 Intake Total 3389 1200 Output Total 1920 815 Balance 1469 385 Zosyn # 9 (antibiotics # 14) Fluconazole # 4 (anti fungal # 12) Pelvic fluid collection culture negative to date - Physical Exam General Appearance: alert, no apparent distress EENT: No scleral icterus, No thrush Abdomen: non-tender, other (RODRIGO with minimal serous output; lower incision with Hydrofera Blue and no surrounding erythema), No distended - Line/s RUE PICC Lines: No drainage, No erythema ICD10 Worksheet Patient Problems: Problems Problem Status Diagnosed Abdominal pain Acute Small bowel obstruction Acute
[2016-05-24 12:54] VITALS: BP 117/68; PULSE 81; RESP 18; TEMP 98.1; O2SAT 97
--- NOTE | 2016-05-24 13:56 | PDIAF ---
- Diagnosis Diagnosis: Intra-abdominal abscess Code Status: Full Code - Medication Management Discharge Medications: Medications to Continue on Transfer Norgestimate-Ethinyl Estradiol [Trinessa Tablet] 1 each PO HS 05/08/16 [Last Taken 05/07/16] Cyclobenzaprine [Flexeril 10 MG (*)] 10 mg PO Q8 #20 tab 05/24/16 [Last Taken Unknown] FLUCONAZOLE/NaCl [Diflucan (Premix)] 200 ml IV DAILY #0 bag 05/24/16 [Last Taken Unknown] Piperacillin Na/Tazo [Zosyn 4.5 Gram Vial] 4.5 gm IV Q8H #0 vial 05/24/16 [Last Taken Unknown] Temazepam [Restoril 15 MG (*)] 15 mg PO HS PRN #20 cap 05/24/16 [Last Taken Unknown] Half-Way Antibiotics: Zosyn 13.5 g IV Q 24 hours by continuous infusion; 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 PICC Care - Routine: Yes - Orders Services needed: Home Care, Registered Nurse Home Care Face to Face: I certify that this patient was under my care and that I had the required [id number] encounter meeting the encounter requirements on the discharge day. My findings support the fact that the patient is homebound as defined in CMS Chapter 7 Medicare Benefits Manual 30.1.1, The condition of the patient is such that there exists a normal inability to leave home and consequently, leaving home would require a considerable and taxing effort. Diet Recommendation: no restrictions on diet Diet Texture: Regular Texture Diet Wound Care Instructions: Please change hydrofera blue packing q3 days. Remove packing, irrigate with NS and repack. Change allevyn prn. may shower with allevyn in place Sutures/Renea Site: midline incision Date to Remove Sutures/[place] [address]: 05/31/16 Activity/Weight Bearing Restrictions: Avoid heavy lifting, pushing or pulling x 6 weeks from surgery - Labs/Radiology CBC Date: 05/29/16 (Weekly Q Sunday) CMP Date: 05/29/16 (Weekly Q Sunday) Call or Fax Lab and Imaging Results to: Dr. Van, - Follow Up Care Current Providers and Referrals: Hermann Van MD [Medical Doctor] - 06/01/16 2:00 pm Patient,NotPresent [Unknown] - As per Instructions Carolin Argueta MD [Medical Doctor] -
--- NOTE | 2016-05-24 14:02 | SOAPPROG ---
SOAP Progress Note Assessment/Plan: Assessment: 30yo F s/p ex lap with washout. Serous abdominal fluid - no pus. Final RODRIGO drain will be removed by IR today because the coil is near inferior epigastric artery Regular diet Pain control - ibuprofen . Flexeril working for for back pain Fat necrosis at inferior aspect of incision - packed with hydrofera blue Tachycardia improved Leukocytosis - WNL Lovenox/SCDs DVT ppx - patient refusing Appreciate ID input and management of IV antibiotics Seen with Dr. Argueta. DC home today after drain out with IV antibiotics. F/u ID 1 week. F/u Dr. Argueta 2 weeks. S: +flatus and BMs. Tolerating regular diet. Back pain. Drainage from inferior aspect of incision. She wants to go home today O: laying in bed, appears uncomfortable, mother at bedside No increased WOB +BS, soft, slightly less distended, nontender. Incision clean and dry, draining serous fluid from inferior aspect. Renea removed from inferior aspect - serosanguineous fluid drained, appx 3cm depth. No tunnelling. Irrigated and packed with HFB. RODRIGO with serosanguinous output 05/24/16 13:56 Objective: Vital Signs Temp Pulse Resp BP Pulse Ox 36.7 C 81 18 117/68 97 05/24/16 12:52 05/24/16 12:52 05/24/16 12:52 05/24/16 12:52 05/24/16 12:52 Microbiology 05/21/16 10:18 Gram Stain - Final Abdomen - Aspirate 05/16/16 17:00 Gram Stain - Final Peritoneal Fluid - Aspirate Anaerobic Culture - Final Sarah Albicans Lactobacillus Species Laboratory Results 05/24/16 05:25 05/22/16 04:41 05/23/16 05/24/16 05/25/16 05:59 05:59 05:59 Intake Total 3389 1200 Output Total 1920 815 Balance 1469 385 PT 14.5 SEC (12.0-15.0) 05/22/16 04:41 INR 1.14 (0.83-1.16) 05/22/16 04:41 ICD10 Worksheet Patient Problems: Problems Problem Status Diagnosed Abdominal pain Acute Small bowel obstruction Acute
--- NOTE | 2016-05-29 22:30 | GDS ---
[f rep st] DISCHARGE SUMMARY ADMITTING DIAGNOSES: Internal hernia, small bowel obstruction. SECONDARY DIAGNOSES: Small-bowel perforation; tachycardia, resolved; leukocytosis, resolved; intraab dominal fluid collections, resolved. REASON FOR ADMISSION: The patient is a 30-year-old woman who developed abdominal pain, nausea, and v omiting. She presented to the emergency room and was found to have small bowel obstruction with inte rnal hernia. She was admitted for surgical intervention, pain control, return of bowel function and observation. HOSPITAL COURSE: She was taken to the operating room by Dr. Ortiz on 05/08/2016 for diagnostic lap aroscopy, lysis of adhesions and repair of an internal hernia. On 05/09/2016, she developed a low-gr marce fever, as well as tachycardia. She was started on IV Invanz. On 05/11/2016, the tachycardia was persistent. She additionally developed increased abdominal pain. An EKG showed sinus tachycardia. CT scan showed a large complex fluid collection in the pelvis, as well as upper abdomen, with pneumo peritoneum suggestive of possible perforation versus early abscess. She returned to the operating ro om by Dr. Ortiz for exploratory laparotomy with small bowel resection for bowel perforation. The p athology revealed multiple recent perforations, submucosal hematoma and [id number] acute sero sitis. On 05/12/2016, she had a PICC line placed and TPN was initiated. On 05/13/2016, fluconazole was added to the IV Invanz for candidal coverage. On 05/15/2016, she had a chest x-ray which showed a left retro cardial consolidation consistent with atelectasis. She continued to have persistent tac hycardia. Her family requested transfer to the [facility], but this was denied by insurance because the transfer would be a lateral transfer. She had a repeat CT scan which showed d rainage of the pelvic abscess but now with scattered foci of fluid pockets elsewhere in the abdomen, including interloop abscesses. It also showed resolution of small-bowel obstruction. On 05/16/2016, the family requested a 2nd opinion from a surgeon; that is when Dr. Argueta became involved. She requ ested susceptibility of the candidal species in addition to consulting with Infectious Disease. Dr. Vee Chopra changed her antibiotic coverage to Zosyn and micafungin for broader coverage. The patient returned to the operating room on 05/16/[address] Argueta for exploratory laparotomy with washout. Approximately 650 cc of serous fluid was evacuated. There was no purulence. On 05/17/2016, her ta chycardia resolved. On 05/19/2016, the patient developed increased distention. The abdominal x-ray showed nonobstructive gas bowel pattern. On this day, she began to pass flatus as well as had a cody l movement. On 05/20/2016, a repeat CT scan showed decrease in the intraabdominal fluid with a persi stent 3.3 cm interloop fluid collection in the left lower quadrant and a 5.6 cm anterior pelvic fluid collection. The candidal species were susceptible to fluconazole and the micafungin was discontinue d and fluconazole resumed. On 05/21/2016, she underwent ultrasound-guided drain placement by [facility] for the anterior pelvic fluid collection with immediate resolution of the fluid col lection. On 05/22/2016, her fever, leukocytosis and tachycardia were all markedly improved. By 05/01, her diet was advanced to regular without worsening symptoms and TPN discontinued. On , she was stable for discharge. Her drains were removed by Interventional Radiology. The inferio r aspect of her incision was draining serous fluid. The aury were removed and she had a small poc ket of fat necrosis. This was irrigated and packed with Hydrofera Blue. At the time of discharge, s he was tolerating oral pain medication, ambulating independently. CONDITION: She is being discharged home in stable condition. Her pain is controlled with oral pain medication. She is tolerating regular diet. She is ambulating independently. DISCHARGE MEDICATIONS: She was provided prescriptions for fluconazole, Zosyn, Flexeril and Restoril. She was instructed to resume home medications. Please see EMR for further detail. DISCHARGE INSTRUCTIONS AND FOLLOWUP: She will have home health for IV antibiotic administration as w ell as wound care. The Hydrofera Blue can be changed every 3 days and outer dressing changed as need ed. She will return to Dr. Argueta's office for wound check 1 week after discharge. She will follow u p with Dr. Van per his recommendation. She and her family had their questions answered to their sat isfaction and understand to call with any worsening symptoms, questions or concerns. /[id number]/MODL
== END 2016-05-24 15:10 | disposition home or self-care (01) | DRG 329 ==
LOC: EDUNIT# → F3E 16:16
PROVIDERS: ADMIT Surgery; ATTEND Surgery
PROC: 0WQF4ZZ Repair Abdominal Wall, Percutaneous Endoscopic Approach (ICD-10-PCS; principal; 2016-05-08 13:45)
PROC: 0DN84ZZ Release Small Intestine, Percutaneous Endoscopic Approach (ICD-10-PCS; principal; 2016-05-08 13:45)
PROC: 0DB80ZZ Excision of Small Intestine, Open Approach (ICD-10-PCS; 2016-05-11 20:00)
PROC: 02HV33Z Insertion of Infusion Device into Superior Vena Cava, Percutaneous Approach (ICD-10-PCS; 2016-05-12)
PROC: 3E1H78Z Irrigation of Lower GI using Irrigating Substance, Via Natural or Artificial Opening (ICD-10-PCS; 2016-05-16)
PROC: 0W9G30Z Drainage of Peritoneal Cavity with Drainage Device, Percutaneous Approach (ICD-10-PCS; 2016-05-21)
DX: K56.60 Unspecified intestinal obstruction (principal); K65.1 Peritoneal abscess; K65.8 Other peritonitis; R00.0 Tachycardia, unspecified
CPT/HCPCS: 87186-90; 96365; 97161-GP; C1729; C1751; C1769; J0330; J0610; J1100; J1170; J1335; J1450; J1644; J1650; J1885; J2001; J2248; J2250; J2405; J2543; J2550; J2704; J2710; J3010; Q9967

== ENCOUNTER → 2016-06-06 | Outpatient (CLI) | payer OTHER ==
[~2016-06-06] MED LIST changes: -HYDROmorphONE/DILAUDID 1 MG/ML SYR IVP ONE; +IOPAMIDOL (ISOVUE-300) 100 ML BTL IV ONE
--- NOTE | 2016-06-06 13:29 | CT ---
CT Abdomen and Pelvis With Contrast History: Follow up multiple abscesses. Small bowel resection. Comparison: CT pelvis May 21, 2016, CT abdomen and pelvis May 20, 2016. Technique: Axial contrast-enhanced images were obtained through the abdomen and pelvis following the uneventful administration of oral and 85 mL Isovue-300 intravenous contrast. Creatinine is 0.6. Dose reduction techniques were utilized. Findings: Abdomen: There is mild left lower lobe atelectasis. Heart size is normal. The liver, gallbladder, spleen, pancreas, adrenals, and right kidney are normal. There is a stable leiva bcentimeter hypodensity in the posterior left kidney, too small to characterize. There is mild dilata tion of the small bowel at the anastomosis without evidence of obstruction. The colon is normal calib er. The appendix is normal. Previously noted ascites has decreased in volume, with numerous smaller more defined fluid collection s present on the current study. There are multiple small peripherally enhancing fluid collections, in cluding three along the anterior aspect of the left lobe of the liver and stomach. A 2.0 x 1.5 cm int erloop abscess in the left abdomen (series 3 image 183) previously measured 3.3 x 2.4 cm. A small flu id collection anterior and medial to this is also slightly improved (series 3 image 188). Numerous ad ditional small peripherally enhancing fluid collections are present, with decrease in size of a 3.3 x 1.2 cm anterior pelvic collection (image 244) that previously measured 5.6 x 4.6 cm. This fluid luis enrique ection appears contiguous with a small amount of extraluminal air and fluid at the anterior aspect of the pelvis that is contiguous with the patient's midline cutaneous fistula/drainage. The aorta is no rmal caliber. The IVC, hepatic, portal, splenic, and superior mesenteric veins are patent. No patholo gically enlarged lymph nodes are identified. Levoscoliosis is present in the lumbar spine. Pelvis: The bladder is normal. A 3.5 x 2.3 cm posterior pelvic collection (series 3 image 277) previ ously measured 4.8 x 2.9 cm. Uterine contour is normal. There is mesenteric inflammation associated w ith the fluid collections. Mild diffuse bladder wall thickening may be related to reactive inflammati on. No aggressive osseous lesions are identified. Impression: 1. Decreased size and increased definition of numerous intra-abdominal and pelvic fluid collections s kofi the comparison, including a complex fluid collection in the anterior pelvis that extends to a cu taneous fistula. 2. Mild diffuse bladder wall thickening, which could be related to reactive inflammation from the pel ba fluid collections. 3. Additional findings as above.
== END ==
LOC: FIMAGING 09:41
PROVIDERS: ATTEND Internal Medicine Infectious Disease
DX: K65.1 Peritoneal abscess (principal); N28.9 Disorder of kidney and ureter, unspecified; M41.86 Other forms of scoliosis, lumbar region
CPT/HCPCS: Q9967